=== PATIENT | female | born 1945 | race Caucasian/White ===

== ENCOUNTER 2016-05-07 10:25 | Observation (INO) | payer MEDICARE, OTHER ==
[2016-05-07 10:29] VITALS: BMI 34.3
[2016-05-07] MEDS ORDERED: Sodium Chloride 0.9% 1,000 ML IV ONE (10:44)
--- NOTE | 2016-05-07 10:48 | C.PDOC ---
History Of Present Illness 70 year old patient, with a past medical history of asthma, CAD, hypertension, CVA, CABG, diabetes, and hypercholesterolemia, presents to the emergency department complaining of shortness of breath worsening for the last 6 days. 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 Patient used her breathing treatments at home without relief. She also complains of a productive cough with white to yellow sputum. Patient has chronic lower back pain radiating to the the left leg. Patient was seen by her pain management physician, Dr. Jeter, 5 days ago who gave her a prescription for morphine. Patient had mild relief, but started to feel itchy so she stopped taking it. Patient denies fever, chest pain, palpitations, vomiting, abdominal pain, diarrhea, headache, or dizziness. Time Seen by Provider: 05/07/16 10:35 Chief Complaint (Nursing): Shortness Of Breath History Per: Patient History/Exam Limitations: no limitations Onset/Duration Of Symptoms: Worse Since (6 days) Current Symptoms Are (Timing): Still Present Initiating Event: Other Current Respiratory Medications: See Home Med List Severity: Mild Pain Scale Rating Of: 3 Recent travel outside of the [place]: No Past Medical History Reviewed: Historical Data, Nursing Documentation, Vital Signs Vital Signs: Last Vital Signs Temp 99.0 F 05/07/16 10:29 Pulse 67 05/07/16 10:29 Resp 20 05/07/16 10:50 BP 171/90 H 05/07/16 10:29 Pulse Ox 94 L 05/07/16 11:54 - Medical History PMH: Asthma, CAD, CVA, Diabetes, HTN, Hypercholesterolemia Surgical History: CABG, Coronary Stent - [facility] INJECT/INFUSE THROMBOLYTIC AGENT (11/14/12) Family History: States: CAD, Diabetes - Social History Hx Tobacco Use: No Hx Alcohol Use: No Hx Substance Use: No - Immunization History Hx Tetanus Toxoid Vaccination: Yes Hx Influenza Vaccination: Yes Hx Pneumococcal Vaccination: No Review Of Systems Except As Marked, All Systems Reviewed And Found Negative. Constitutional: Negative for: Fever Cardiovascular: Negative for: Chest Pain, Palpitations Respiratory: Positive for: Shortness of Breath Gastrointestinal: Negative for: Vomiting, Abdominal Pain, Diarrhea Neurological: Negative for: Headache, Dizziness Physical Exam - Physical Exam Appears: Non-toxic, Other (mild respiratory distress) Skin: Warm, Dry Head: Atraumatic, Normacephalic Eye(s): bilateral: Normal Inspection, EOMI Ear(s): Bilateral: Normal Nose: Normal Oral Mucosa: Moist Throat: Normal Neck: Normal ROM, Supple Chest: Symmetrical, No Tenderness Cardiovascular: Rhythm Regular Respiratory: No Accessory Muscle Use, No Rales, No Rhonchi, Wheezing (diffuse bilaterally) Gastrointestinal/Abdominal: Soft, No Tenderness Back: No CVA Tenderness, Other (paralumbar tenderness) Extremity: Normal ROM, No Pedal Edema, No Calf Tenderness, No Deformity, No Swelling, No Other (hip tenderness) Neurological/Psych: Oriented x3 ED Course And Treatment - Laboratory Results Result Diagrams: 05/07/16 11:28 05/07/16 11:28 ECG: Interpreted By Me, Viewed By Me ECG Rhythm: Sinus Rhythm ECG Interpretation: Normal, No Changes From Prior (11/01/14) Interpretation Of ECG: nonspecific Twave abnormality Rate From EC (bpm) O2 Sat by Pulse Oximetry: 94 (RA) Pulse Ox Interpretation: Abnormal Medical Decision Making Medical Decision Making: Impression: 70 y.o female in mild respiratory distress Prior records reviewed: Patient last admitted 05/17/15 for asthma exacerbation Plan: * EKG * Labs * Chest XR * Solu-Medrol, IV fluids, Duoneb Progress: Patient assessed and examined upon arrival to ED. EKG obtained and reviewed showing NS at 68 bpm with nonspecific Twave abnormality, no changes from . 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 Oxygen given via nasal cannula. Orders placed for labs and duonebs Upon reevaluation patient reports no change, she continues to have SOB and wheezing, no acute distress. Will call Tj Oliveira for obs Spoke with Tj Oliveira and accepts patient to service Disposition - Disposition Disposition: HOSPITALIZED Disposition Time: 12:43 Condition: FAIR - POA Present On Arrival: None - Clinical Impression Clinical Impression: Asthma exacerbation - PA / RISK MANAGEMENT ANALYST / Resident Statement MD/DO has reviewed & agrees with the documentation as recorded. - Scribe Statement The provider has reviewed the documentation as recorded by the Scribe Jennifer Oliveira All medical record entries made by the Scribe were at my direction and personally dictated by me. I have reviewed the chart and agree that the record accurately reflects my personal performance of the history, physical exam, medical decision making, and the department course for this patient. I have also personally directed, reviewed, and agree with the discharge instructions and disposition. Decision To Admit - Pt Status Changed To: Hospital Disposition Of: Observation - . Bed Request Type: Regular Admitting Physician: Sujatha Oliveira Patient Diagnosis: Asthma exacerbation
[2016-05-07] MEDS: Albuterol-Ipratrop 3 mg / 0.5 (3 ml) UD IH SCH ×4 (11:10→13:58)
[2016-05-07] MEDS ORDERED: Albuterol-Ipratrop 3 mg / 0.5 (3 ml) UD ONE ×3 (11:16→15:29)
[2016-05-07] MEDS ORDERED: Sodium Chloride 0.9% 1,000 ML ONE (11:27)
[2016-05-07 11:38] LABS: BASO # 0.1 K/uL (0.0-0.2); BASO % 0.7 % (0.0-2.0); EOS # 0.6 K/uL (0.0-0.7); EOS % 7.9 % (0.0-4.0); HEMATOCRIT 38.8 % (34.0-47.0); LYMPH # 1.4 K/uL (1.0-4.3); LYMPH % 20.3 % (20.0-40.0); MEAN CELL VOLUME 90.1 fL (81.0-99.0); MEAN CORPUSCULAR HEMOGLOBIN 29.6 pg (27.0-31.0); MEAN CORPUSCULAR HGB CONC 32.9 g/dL (33.0-37.0); MEAN PLATELET VOLUME 7.9 fL (7.2-11.7); MONO # 0.6 K/uL (0.0-0.8); RED CELL DISTRIBUTION WIDTH 13.6 % (11.5-14.5); WHITE BLOOD COUNT 7.1 K/uL (4.8-10.8)
[2016-05-07 11:52] LABS: CHLORIDE 100 mmol/L (98-107); POTASSIUM 4.9 mmol/L (3.6-5.2); SODIUM 140 mmol/L (132-148)
[2016-05-07 11:54] LABS: GFR AFRICAN-AMERICAN > 60
[2016-05-07 11:55] LABS: ALB/GLOB RATIO 1.4 (1.0-2.1); ALKALINE PHOSPHATASE 56 U/L (38-126); ALT/SGPT 16 U/L (9-52); AST/SGOT 25 U/L (14-36); BILIRUBIN,TOTAL 0.6 mg/dL (0.2-1.3); BLOOD UREA NITROGEN 20 mg/dL (7-17); CARBON DIOXIDE 26 mmol/L (22-30); GLUCOSE,RANDOM 155 mg/dL (65-105); TOTAL PROTEIN 6.7 g/dL (6.3-8.3)
[2016-05-07 11:56] LABS: CALCIUM 8.8 mg/dl (8.6-10.4)
[2016-05-07 13:22] LABS: RBC URINE 1 /hpf (0-3); URINE BACTERIA RARE (<OCC); URINE BILIRUBIN NEGATIVE (NEGATIVE); URINE BLOOD NEGATIVE (NEGATIVE); URINE COLOR Yellow (YELLOW); URINE GLUCOSE (UA) NORMAL (Normal); URINE KETONE NEGATIVE (NEGATIVE); URINE LEUKOCYTE ESTERASE NEG Leu/uL (Negative); URINE PROTEIN NEGATIVE (NEGATIVE); URINE UROBILINOGEN NORMAL mg/dL (0.2-1.0); WBC URINE 2 /hpf (0-5)
--- NOTE | 2016-05-07 13:58 | RAD ---
PROCEDURE: CHEST RADIOGRAPH, 1 VIEW HISTORY: SOB COMPARISON: Comparison chest 05/16/2015 FINDINGS: LUNGS: Suspect mild left basilar atelectasis or scarring PLEURA: No pneumothorax or pleural fluid seen. CARDIOVASCULAR: Sternotomy wires and CABG clips again noted. Heart appears upper limits of normal/ borderline enlarged. OSSEOUS STRUCTURES: No significant abnormalities. VISUALIZED UPPER ABDOMEN: Normal. OTHER FINDINGS: None. IMPRESSION: Suspect minor left basilar atelectasis or scarring
--- NOTE | 2016-05-07 15:18 | CP.PCM.HP ---
Past Patient History - Infectious Disease Hx of Infectious Diseases: None - Tetanus Immunizations Tetanus Immunization: Unknown - Past Medical History & Family History Past Medical History?: Yes - Past Social History Smoking Status: Light Smoker < 10 Cigarettes Daily - CARDIAC Hx Hypercholesterolemia: Yes Hx Hypertension: Yes - PULMONARY Hx Asthma: Yes - NEUROLOGICAL HX Cerebrovascular Accident: Yes (2 years ago) - HEENT Hx HEENT Problems: No - RENAL Hx Chronic Kidney Disease: No - ENDOCRINE/METABOLIC Hx Diabetes Mellitus Type 2: Yes - HEMATOLOGICAL/ONCOLOGICAL Hx Blood Disorders: No - INTEGUMENTARY Hx Dermatological Problems: No - MUSCULOSKELETAL/RHEUMATOLOGICAL Hx Musculoskeletal Disorders: No Hx Falls: Yes - GASTROINTESTINAL Hx Gastrointestinal Disorders: No - GENITOURINARY/GYNECOLOGICAL Hx Genitourinary Disorders: No - PSYCHIATRIC Hx Substance Use: No - SURGICAL HISTORY Hx Coronary Artery Bypass Graft: Yes Hx Coronary Stent: Yes - ANESTHESIA Hx Anesthesia: Yes Hx Anesthesia Reactions: No Hx Malignant Hyperthermia: No Meds Allergies/Adverse Reactions: Allergies Allergy/AdvReac Type Severity Reaction Status Date / Time tramadol Allergy Verified 05/07/16 10:28 Results - Vital Signs Recent Vital Signs: Last Vital Signs Temp 97.7 F 05/07/16 15:14 Pulse 62 05/07/16 14:15 Resp 19 05/07/16 14:15 BP 160/58 H 05/07/16 14:15 Pulse Ox 98 05/07/16 14:15 - Labs Result Diagrams: 05/07/16 11:28 05/07/16 11:28 Labs: Laboratory Results - last 24 hr 05/07/16 13:13 Urine Color Yellow Urine Clarity Clear Urine pH 6.0 Ur Specific [place] 1.011 Urine Protein Negative Urine Glucose (UA) Normal Urine Ketones Negative Urine Blood Negative Urine Nitrate Negative Urine Bilirubin Negative Urine Urobilinogen Normal Ur Leukocyte Esterase Neg Urine WBC (Auto) 2 Urine RBC (Auto) 1 Ur Squamous Epith Cells 1 Urine Bacteria Rare Assessment & Plan - Assessment and Plan (Free Text) Plan: fs ada admit to floor pulm consult singulair avelox duoneb solumedrol destinee same advair
[2016-05-07] MEDS ORDERED: Moxifloxacin IV 400mg/250ml NS 250 ML IVPB ONE (15:29)
[2016-05-07] MEDS ORDERED: MethylPREDNISolone 40 mg Vial IVP SCH (15:30)
[2016-05-07] MEDS: Moxifloxacin IV 400mg/250ml NS 250 ML IVPB SCH (15:39)
[2016-05-07] MEDS: Albuterol-Ipratrop 3 mg / 0.5 (3 ml) UD INH SCH (20:05)
[2016-05-07] MEDS: Fluticasone-Salmeterol 250-50mcg Diskus IH SCH (20:06)
[2016-05-07] MEDS: MethylPREDNISolone 40 mg Vial IVP SCH (22:07)
[2016-05-08] MEDS: Albuterol-Ipratrop 3 mg / 0.5 (3 ml) UD INH SCH ×4 (01:44→19:25)
[2016-05-08] MEDS: MethylPREDNISolone 40 mg Vial IVP SCH ×3 (05:33→21:21)
--- NOTE | 2016-05-08 07:35 | CP.PCM.PN ---
Subjective - Date & Time of Evaluation Date of Evaluation: 05/08/16 Time of Evaluation: 09:30 - Subjective Subjective: Dr. Reynold Oliveira service, Patient is seen and evaluated in room. Patient is comfortable in lieing in bed. She is saying her breathing has improved since admission. History is limited due to language barrier and patient's aphasia. Objective - Vital Signs/Intake and Output Vital Signs (last 24 hours): Temp Pulse Resp BP Pulse Ox 98.6 F 97 H 20 158/84 H 96 05/07/16 23:00 05/07/16 23:00 05/07/16 23:00 05/07/16 23:00 05/07/16 23:00 Intake and Output: 05/08/16 05/08/16 06:59 18:59 Intake Total 500 Balance 500 - Medications Medications: Current Medications Albuterol/Ipratropium (Duoneb 3 Mg/0.5 Mg (3 Ml) Ud) 3 ml INH RQ6 [facility] Last Admin: 05/08/16 01:44 Dose: 3 ml Amlodipine Besylate (Norvasc) 10 mg PO DAILY [facility] Aspirin (Ecotrin) 81 mg PO DAILY [facility] Carvedilol (Coreg) 12.5 mg PO BID [facility] Last Admin: 05/07/16 18:30 Dose: 12.5 mg Enoxaparin Sodium (Lovenox) 40 mg SC DAILY [facility] Glimepiride (Amaryl) 4 mg PO BID [facility] Last Admin: 05/07/16 19:10 Dose: 4 mg Moxifloxacin HCl (Avelox Iv 400mg/250ml Ns) 250 mls @ 167 mls/hr IVPB Q24H [facility] Stop: 05/21/16 16:01 Last Admin: 05/07/16 15:39 Dose: 167 mls/hr Isosorbide Mononitrate (Imdur) 30 mg PO DAILY [facility] Losartan Potassium (Cozaar) 100 mg PO DAILY [facility] Methylprednisolone (Solu-Medrol) 40 mg IVP Q8 [facility] Last Admin: 05/08/16 05:33 Dose: 40 mg Montelukast Sodium (Singulair) 10 mg PO HS [facility] Last Admin: 05/07/16 22:06 Dose: 10 mg Pantoprazole Sodium (Protonix Ec Tab) 40 mg PO DAILY [facility] Rosuvastatin Calcium (Crestor) 5 mg PO HS [facility] Fluticasone/Salmeterol (Advair Diskus 250/50) 1 puff IH RQ12 [facility] Last Admin: 05/07/16 20:06 Dose: Not Given Sitagliptin Phosphate (Januvia) 50 mg PO DAILY [facility] - Constitutional Appears: Non-toxic, No Acute Distress - Head Exam Head Exam: ATRAUMATIC, NORMAL INSPECTION, NORMOCEPHALIC - Eye Exam Eye Exam: Normal appearance, PERRL Pupil Exam: NORMAL ACCOMODATION - ENT Exam ENT Exam: Normal Exam - Respiratory Exam Respiratory Exam: Clear to Ausculation Bilateral, Wheezes (mild scattery wheezing). absent: Rales, Rhonchi - Cardiovascular Exam Cardiovascular Exam: REGULAR RHYTHM, RRR, +S1, +S2. absent: Gallop, Rubs - GI/Abdominal Exam GI & Abdominal Exam: Soft, Normal Bowel Sounds. absent: Distended, Guarding, Rigid, Tenderness - Extremities Exam Extremities Exam: Normal Inspection. absent: Pedal Edema - Back Exam Back Exam: NORMAL INSPECTION - Neurological Exam Neurological Exam: Alert - Psychiatric Exam Psychiatric exam: Normal Affect, Normal Mood - Skin Skin Exam: Normal Color, Warm Assessment and Plan (1) Asthma exacerbation Assessment & Plan: Patient admitted yesterday, will give duoneb 3ml [id number], Singular 10mg HS , Advair 250/50 Q12H 1 puff solumedrol 40mg q8h, Avelox 400mg IV daily Dr. Harris, consulted, help appreicated, will follow up I[facility] tomorrow morning with am labs. Status: Acute (2) CAD (coronary artery disease) Assessment & Plan: Crestor 5mg, Aspirin 81mg Status: Chronic (3) Hypertension Assessment & Plan: Norvasc 10mg, Cozaar 100mg, Imdur 30mg, Coreg 12.5mg Status: Chronic (4) Diabetes mellitus Assessment & Plan: Januvia 50mg Amaryl 4mg Accu checks ACHS, sliding scale medium protocol insulin moderate consistent carbohydrate diet. Status: Chronic (5) Prophylactic measure Assessment & Plan: Lovenox 40mg Protonix 40mg Status: Chronic
[2016-05-08] MEDS: Fluticasone-Salmeterol 250-50mcg Diskus IH SCH (09:30)
[2016-05-08] MEDS: Pantoprazole 40 mg EC Tab PO SCH (10:30)
[2016-05-08] MEDS: Enoxaparin 40 mg Syringe SC SCH (10:30)
[2016-05-08 12:13] LABS: ABG ALLEN TEST POS; ARTERIAL BLOOD HGB O2 SAT 94.9 % (95.0-98.0); DRAW SITE RR; HHB 1.6 % (0.0-5.0); METHEMOGLOBIN 1.4 % (0.0-3.0)
--- NOTE | 2016-05-08 12:28 | CP.PCM.CON ---
History of Present Illness - History of Present Illness History of Present Illness: Patient is a 70 year old female with PMH of Asthma, CAD, HTN, CVA, CABG, DM, and hypercholesteremia. Pt presented to the ER on 05/07/16 for worsening shortness of breath for 6 days. As per daughter, pt also had productive cough with white-yellow sputum at home and attempted to use breathing treatments, however without relief. Pt also admitted to chronic lower back pain radiating to her left leg which for which she was prescribed Morphine 5 days ago, by her pain management doctor, Dr. Jeter. Pt denied subjective fever, CP, nausea, vomiting, diarrhea, abdominal pain, and dizziness on initial presentation. Pulmonary team was consulted for dyspnea. Pt seen and examined at bedside. Pt has aphasia due to prior CVA, pt's daughter present at bedside. Pt appeared to be comfortable and in no acute distress. As per daughter, pt states that her shortness of breath has lessened from yesterday, stating that her nasal cannula has been helping her. She also states that her cough has also lessened, but admits to some productivity still. Pt also denies chest pain, subjective fever, nausea, vomiting, dirarrhea, and states that she no longer has lower back pain. However, pt has complaints of being constipated today. Pt denies smoking history Review of Systems - Constitutional Constitutional: Malaise (Some), Weakness (Some). absent: Fever - Cardiovascular Cardiovascular: absent: Chest Pain, Chest Pain at Rest, Dyspnea - Respiratory Respiratory: As Per HPI. absent: Dyspnea, Wheezing, Pain on Inspiration, Pain with Coughing - Musculoskeletal Musculoskeletal: absent: Back Pain (Improved) Past Patient History - Infectious Disease Hx of Infectious Diseases: None - Tetanus Immunizations Tetanus Immunization: Unknown - Past Medical History & Family History Past Medical History?: Yes - Past Social History Smoking Status: Former Smoker - CARDIAC Hx Cardiac Disorders: Yes Hx Hypercholesterolemia: Yes Hx Hypertension: Yes - PULMONARY Hx Respiratory Disorders: Yes Hx Asthma: Yes - NEUROLOGICAL Hx Neurological Disorder: Yes HX Cerebrovascular Accident: Yes (2 years ago) Hx Seizures: Yes - HEENT Hx HEENT Problems: No - RENAL Hx Chronic Kidney Disease: No - ENDOCRINE/METABOLIC Hx Endocrine Disorders: Yes Hx Diabetes Mellitus Type 2: Yes - HEMATOLOGICAL/ONCOLOGICAL Hx Blood Disorders: No - INTEGUMENTARY Hx Dermatological Problems: No - MUSCULOSKELETAL/RHEUMATOLOGICAL Hx Musculoskeletal Disorders: Yes Hx Falls: Yes - GASTROINTESTINAL Hx Gastrointestinal Disorders: No - GENITOURINARY/GYNECOLOGICAL Hx Genitourinary Disorders: Yes Hx Incontinence: Yes - PSYCHIATRIC Hx Psychophysiologic Disorder: No Hx Substance Use: No - SURGICAL HISTORY Hx Surgeries: Yes Hx Coronary Artery Bypass Graft: Yes Hx Coronary Stent: Yes Hx Hysterectomy: Yes - ANESTHESIA Hx Anesthesia: Yes Hx Anesthesia Reactions: No Hx Malignant Hyperthermia: No Meds Allergies/Adverse Reactions: Allergies Allergy/AdvReac Type Severity Reaction Status Date / Time tramadol Allergy Verified 05/07/16 10:28 - Medications Medications: Current Medications Albuterol/Ipratropium (Duoneb 3 Mg/0.5 Mg (3 Ml) Ud) 3 ml INH RQ6 [facility] Last Admin: 05/08/16 07:39 Dose: 3 ml Amlodipine Besylate (Norvasc) 10 mg PO DAILY [facility] Last Admin: 05/08/16 10:30 Dose: 10 mg Aspirin (Ecotrin) 81 mg PO DAILY [facility] Last Admin: 05/08/16 10:29 Dose: 81 mg Carvedilol (Coreg) 12.5 mg PO BID [facility] Last Admin: 05/08/16 10:29 Dose: 12.5 mg Enoxaparin Sodium (Lovenox) 40 mg SC DAILY [facility] Last Admin: 05/08/16 10:30 Dose: 40 mg Glimepiride (Amaryl) 4 mg PO BID [facility] Last Admin: 05/08/16 10:30 Dose: 4 mg Moxifloxacin HCl (Avelox Iv 400mg/250ml Ns) 250 mls @ 167 mls/hr IVPB Q24H [facility] Stop: 05/21/16 16:01 Last Admin: 05/07/16 15:39 Dose: 167 mls/hr Insulin Human Regular (Novolin R) 0 unit SC ACHS [facility] PRN Reason: Protocol Isosorbide Mononitrate (Imdur) 30 mg PO DAILY [facility] Last Admin: 05/08/16 10:29 Dose: 30 mg Losartan Potassium (Cozaar) 100 mg PO DAILY [facility] Last Admin: 05/08/16 10:30 Dose: 100 mg Methylprednisolone (Solu-Medrol) 40 mg IVP Q8 [facility] Last Admin: 05/08/16 05:33 Dose: 40 mg Montelukast Sodium (Singulair) 10 mg PO HS [facility] Last Admin: 05/07/16 22:06 Dose: 10 mg Pantoprazole Sodium (Protonix Ec Tab) 40 mg PO DAILY [facility] Last Admin: 05/08/16 10:30 Dose: 40 mg Rosuvastatin Calcium (Crestor) [address] [facility] Sitagliptin Phosphate (Januvia) 50 mg PO DAILY [facility] Last Admin: 05/08/16 10:29 Dose: 50 mg Physical Exam - Constitutional Appears: Non-toxic, No Acute Distress - Head Exam Head Exam: NORMAL INSPECTION - Eye Exam Eye Exam: Normal appearance Pupil Exam: NORMAL ACCOMODATION - ENT Exam ENT Exam: Mucous Membranes Moist - Respiratory Exam Respiratory Exam: Wheezes (Some bilateral wheezes), NORMAL BREATHING PATTERN. absent: Decreased Breath Sounds - Cardiovascular Exam Cardiovascular Exam: REGULAR RHYTHM - Neurological Exam Neurological exam: Alert, CN II-XII Intact, Oriented x3 - Psychiatric Exam Psychiatric exam: Anxious, Normal Affect - Skin Skin Exam: Dry, Intact, Normal Color, Warm Results - Vital Signs Recent Vital Signs: Last Vital Signs Temp 98 F 05/08/16 07:35 Pulse 97 H 05/08/16 07:35 Resp 18 05/08/16 07:35 BP 172/84 H 05/08/16 10:29 Pulse Ox 97 05/08/16 07:35 - Labs Result Diagrams: 05/07/16 11:28 05/07/16 11:28 Labs: Laboratory Results - last 24 hr 05/07/16 05/07/16 05/08/16 13:13 21:18 06:24 Puncture Site pCO2 pO2 HCO3 ABG pH ABG Total CO2 ABG O2 Saturation ABG Base Excess ABG Hemoglobin ABG Carboxyhemoglobin POC ABG HHb (Measured) ABG Methemoglobin Tenzin Test A-a O2 Difference Respiratory Index Hgb O2 Saturation Liter Flow FiO2 POC Glucose (mg/dL) 186 H 259 H Urine Color Yellow Urine Clarity Clear Urine pH 6.0 Ur Specific [place] 1.011 Urine Protein Negative Urine Glucose (UA) Normal Urine Ketones Negative Urine Blood Negative Urine Nitrate Negative Urine Bilirubin Negative Urine Urobilinogen Normal Ur Leukocyte Esterase Neg Urine WBC (Auto) 2 Urine RBC (Auto) 1 Ur Squamous Epith Cells 1 Urine Bacteria Rare 05/08/16 12:10 Puncture Site Rr pCO2 36 pO2 85 HCO3 22.8 ABG pH 7.39 ABG Total CO2 22.9 ABG O2 Saturation 98.3 H ABG Base Excess -2.7 L ABG Hemoglobin 12.6 ABG Carboxyhemoglobin 2.0 H POC ABG HHb (Measured) 1.6 ABG Methemoglobin 1.4 Tenzin Test Pos A-a O2 Difference 84.0 Respiratory Index 1.0 Hgb O2 Saturation 94.9 L Liter Flow 3.0 FiO2 30.0 POC Glucose (mg/dL) Urine Color Urine Clarity Urine pH Ur Specific [place] Urine Protein Urine Glucose (UA) Urine Ketones Urine Blood Urine Nitrate Urine Bilirubin Urine Urobilinogen Ur Leukocyte Esterase Urine WBC (Auto) Urine RBC (Auto) Ur Squamous Epith Cells Urine Bacteria Assessment & Plan (1) Asthma exacerbation Assessment and Plan: Chest X-ray shows minor left basilar atelectasis/scarring. See report for full details. Ordered ABG and IgE serum Continue Duoneb treatment, Solu-Medrol, Singulair, and Advair treatment. Consider sleep study in future Continue to monitor for SOB, fever, CP, and worsening cough with productivity. Status: Acute
[2016-05-08] MEDS: (Novolin R) Insulin Human Regular 100 units/ml vial SC SCH ×3 (12:55→21:17)
--- NOTE | 2016-05-08 17:22 | CP.PCM.PN ---
Subjective - Date & Time of Evaluation Date of Evaluation: 05/08/16 Time of Evaluation: 12:00 - Subjective Subjective: clinically same Objective - Vital Signs/Intake and Output Vital Signs (last 24 hours): Temp Pulse Resp BP Pulse Ox 98.9 F 88 20 146/73 96 05/08/16 15:20 05/08/16 15:20 05/08/16 15:20 05/08/16 15:20 05/08/16 15:20 Intake and Output: 05/08/16 05/08/16 06:59 18:59 Intake Total 500 400 Balance 500 400 - Medications Medications: Current Medications Albuterol/Ipratropium (Duoneb 3 Mg/0.5 Mg (3 Ml) Ud) 3 ml INH RQ6 [facility] Last Admin: 05/08/16 13:35 Dose: 3 ml Amlodipine Besylate (Norvasc) 10 mg PO DAILY [facility] Last Admin: 05/08/16 10:30 Dose: 10 mg Aspirin (Ecotrin) 81 mg PO DAILY [facility] Last Admin: 05/08/16 10:29 Dose: 81 mg Carvedilol (Coreg) 12.5 mg PO BID [facility] Last Admin: 05/08/16 10:29 Dose: 12.5 mg Enoxaparin Sodium (Lovenox) 40 mg SC DAILY [facility] Last Admin: 05/08/16 10:30 Dose: 40 mg Glimepiride (Amaryl) 4 mg PO BID [facility] Last Admin: 05/08/16 10:30 Dose: 4 mg Moxifloxacin HCl (Avelox Iv 400mg/250ml Ns) 250 mls @ 167 mls/hr IVPB Q24H [facility] Stop: 05/21/16 16:01 Last Admin: 05/07/16 15:39 Dose: 167 mls/hr Insulin Human Regular (Novolin R) 0 unit SC ACHS [facility] PRN Reason: Protocol Last Admin: 05/08/16 12:55 Dose: 3 unit Isosorbide Mononitrate (Imdur) 30 mg PO DAILY [facility] Last Admin: 05/08/16 10:29 Dose: 30 mg Losartan Potassium (Cozaar) 100 mg PO DAILY [facility] Last Admin: 05/08/16 10:30 Dose: 100 mg Methylprednisolone (Solu-Medrol) 40 mg IVP Q8 [facility] Last Admin: 05/08/16 14:29 Dose: 40 mg Montelukast Sodium (Singulair) 10 mg PO HS [facility] Last Admin: 05/07/16 22:06 Dose: 10 mg Pantoprazole Sodium (Protonix Ec Tab) 40 mg PO DAILY [facility] Last Admin: 05/08/16 10:30 Dose: 40 mg Rosuvastatin Calcium (Crestor) 5 mg PO HS [facility] Fluticasone/Salmeterol (Advair Diskus 250/50) 1 puff INH RQ12 [facility] Sitagliptin Phosphate (Januvia) 50 mg PO DAILY [facility] Last Admin: 05/08/16 10:29 Dose: 50 mg - Constitutional Appears: Well - Head Exam Head Exam: ATRAUMATIC, NORMAL INSPECTION, NORMOCEPHALIC - Eye Exam Eye Exam: EOMI, Normal appearance, PERRL Pupil Exam: NORMAL ACCOMODATION, PERRL - ENT Exam ENT Exam: Mucous Membranes Moist, Normal Exam - Neck Exam Neck Exam: Full ROM, Normal Inspection. absent: Lymphadenopathy - Respiratory Exam Respiratory Exam: Decreased Breath Sounds - Cardiovascular Exam Cardiovascular Exam: +S1 - GI/Abdominal Exam GI & Abdominal Exam: Soft, Diminished Bowel Sounds - Rectal Exam Rectal Exam: Deferred
[2016-05-08] MEDS: Moxifloxacin IV 400mg/250ml NS 250 ML IVPB SCH (18:07)
[2016-05-08] MEDS: Fluticasone-Salmeterol 250-50mcg Diskus INH SCH (19:25)
[2016-05-09] MEDS: Albuterol-Ipratrop 3 mg / 0.5 (3 ml) UD INH SCH ×3 (01:22→13:05)
[2016-05-09] MEDS: MethylPREDNISolone 40 mg Vial IVP SCH ×2 (05:26→14:28)
[2016-05-09 07:09] LABS: BASO % 0.1 % (0.0-2.0); LYMPH % 6.1 % (20.0-40.0); MEAN CELL VOLUME 91.1 fL (81.0-99.0); MEAN CORPUSCULAR HEMOGLOBIN 28.8 pg (27.0-31.0); MEAN CORPUSCULAR HGB CONC 31.6 g/dL (33.0-37.0); MEAN PLATELET VOLUME 8.2 fL (7.2-11.7); MONO # 0.7 K/uL (0.0-0.8); MONO % 4.3 % (0.0-10.0); PLATELET COUNT 182 K/uL (130-400); RED CELL DISTRIBUTION WIDTH 14.1 % (11.5-14.5)
[2016-05-09 07:35] LABS: CHLORIDE 102 mmol/L (98-107)
[2016-05-09 07:36] LABS: POTASSIUM 4.3 mmol/L (3.6-5.2); SODIUM 143 mmol/L (132-148)
[2016-05-09 07:38] LABS: ALB/GLOB RATIO 1.4 (1.0-2.1); AST/SGOT 20 U/L (14-36); BILIRUBIN,TOTAL 0.2 mg/dL (0.2-1.3); BLOOD UREA NITROGEN 25 mg/dL (7-17); CARBON DIOXIDE 25 mmol/L (22-30); GFR AFRICAN-AMERICAN > 60; TOTAL PROTEIN 6.3 g/dL (6.3-8.3)
[2016-05-09 07:39] LABS: ALKALINE PHOSPHATASE 61 U/L (38-126); ALT/SGPT 15 U/L (9-52); CALCIUM 9.2 mg/dl (8.6-10.4); GLUCOSE,RANDOM 208 mg/dL (65-105); MAGNESIUM 1.9 mg/dL (1.6-2.3); PHOSPHOROUS 2.7 mg/dL (2.5-4.5)
[2016-05-09] MEDS: Fluticasone-Salmeterol 250-50mcg Diskus INH SCH (08:10)
[2016-05-09] MEDS: (Novolin R) Insulin Human Regular 100 units/ml vial SC SCH ×2 (08:30→12:05)
[2016-05-09 08:52] VITALS: PULSE 64; RESP 18; TEMP 98.3; O2SAT 98
[2016-05-09 10:06] LABS: NEUTROPHIL 88 % (50-75); TOTAL CELLS COUNTED 100
[2016-05-09] MEDS: Pantoprazole 40 mg EC Tab PO SCH (10:37)
[2016-05-09] MEDS: Enoxaparin 40 mg Syringe SC SCH (10:38)
--- NOTE | 2016-05-09 11:12 | CP.PCM.PN ---
Subjective - Date & Time of Evaluation Date of Evaluation: 05/09/16 Time of Evaluation: 09:50 - Subjective Subjective: Pt seen and examined at bedside. Pt sitting up in bed, appears comfortable, and in a pleasant mood. Pt states that she is doing better today and denies any complains or concerns today. Pt denies SOB, CP, subjective fever, cough, and congestion. Objective - Vital Signs/Intake and Output Vital Signs (last 24 hours): Temp Pulse Resp BP Pulse Ox 98.3 F 64 18 136/68 98 05/09/16 08:00 05/09/16 08:00 05/09/16 08:00 05/09/16 10:36 05/09/16 08:00 Intake and Output: 05/09/16 05/09/16 06:59 18:59 Intake Total 240 Balance 240 - Medications Medications: Current Medications Albuterol/Ipratropium (Duoneb 3 Mg/0.5 Mg (3 Ml) Ud) 3 ml INH RQ6 [facility] Last Admin: 05/09/16 08:10 Dose: 3 ml Amlodipine Besylate (Norvasc) 10 mg PO DAILY [facility] Last Admin: 05/09/16 10:37 Dose: 10 mg Aspirin (Ecotrin) 81 mg PO DAILY [facility] Last Admin: 05/09/16 10:38 Dose: 81 mg Carvedilol (Coreg) 12.5 mg PO BID [facility] Last Admin: 05/09/16 10:36 Dose: 12.5 mg Enoxaparin Sodium (Lovenox) 40 mg SC DAILY [facility] Last Admin: 05/09/16 10:38 Dose: 40 mg Glimepiride (Amaryl) 4 mg PO BID [facility] Last Admin: 05/09/16 10:37 Dose: 4 mg Moxifloxacin HCl (Avelox Iv 400mg/250ml Ns) 250 mls @ 167 mls/hr IVPB Q24H [facility] Stop: 05/21/16 16:01 Last Admin: 05/08/16 18:07 Dose: 167 mls/hr Insulin Human Regular (Novolin R) 0 unit SC ACHS [facility] PRN Reason: Protocol Last Admin: 05/09/16 08:30 Dose: 2 unit Isosorbide Mononitrate (Imdur) 30 mg PO DAILY [facility] Last Admin: 05/09/16 10:37 Dose: 30 mg Losartan Potassium (Cozaar) 100 mg PO DAILY [facility] Last Admin: 05/09/16 10:37 Dose: 100 mg Methylprednisolone (Solu-Medrol) 40 mg IVP Q8 [facility] Last Admin: 05/09/16 05:26 Dose: 40 mg Montelukast Sodium (Singulair) 10 mg PO HS [facility] Last Admin: 05/08/16 21:19 Dose: 10 mg Pantoprazole Sodium (Protonix Ec Tab) 40 mg PO DAILY [facility] Last Admin: 05/09/16 10:37 Dose: 40 mg Rosuvastatin Calcium (Crestor) 5 mg PO HS [facility] Last Admin: 05/08/16 21:19 Dose: 5 mg Fluticasone/Salmeterol (Advair Diskus 250/50) 1 puff INH RQ12 [facility] Last Admin: 05/09/16 08:10 Dose: 1 puff Sitagliptin Phosphate (Januvia) 50 mg PO DAILY [facility] Last Admin: 05/09/16 10:37 Dose: 50 mg - Labs Labs: 05/09/16 07:02 05/09/16 07:02 - Constitutional Appears: No Acute Distress - Head Exam Head Exam: NORMAL INSPECTION - Eye Exam Eye Exam: Normal appearance - ENT Exam ENT Exam: Mucous Membranes Moist, Normal Exam - Neck Exam Neck Exam: Normal Inspection - Respiratory Exam Respiratory Exam: Clear to Ausculation Bilateral, NORMAL BREATHING PATTERN. absent: Rales, Rhonchi, Wheezes - Cardiovascular Exam Cardiovascular Exam: REGULAR RHYTHM, +S1, +S2. absent: +S4 - Neurological Exam Neurological Exam: Alert, Awake, Oriented x3 - Psychiatric Exam Psychiatric exam: Normal Affect, Normal Mood - Skin Skin Exam: Dry, Intact, Normal Color, Warm Assessment and Plan (1) Asthma exacerbation Assessment & Plan: ABG results indicated stable condition Continue to monitor for SOB, fever, CP, and worsening cough with productivity. Consider outpatient sleep study to rule out sleep apnea Continue duonebs, Singular, Advair, solumedrol, Avelox, Follow up IGE results Status: Acute
--- NOTE | 2016-05-09 11:15 | CP.PCM.PN ---
Addendum entered and electronically signed by Martha Michael DO 05/09/16 12: 34: D/C home with prednisone 20mg PO daily x 5 days, pepcid 20mg PO daily x 7 days, ronda. Original Note: <Martha Michael - Last Filed: 05/09/16 11:12> Subjective - Date & Time of Evaluation Date of Evaluation: 05/09/16 Time of Evaluation: 07:55 - Subjective Subjective: Dr. Reynold Oliveira service, Patient is seen and evaluated in room. Patient is comfortable in laying in bed. She is saying her breathing has improved since admission. Patient denies fever, chills, chest pain, cough, abdominal pain, nausea, vomiting, diarrhea, constipation, dysuria. Objective - Vital Signs/Intake and Output Vital Signs (last 24 hours): Temp Pulse Resp BP Pulse Ox 98.3 F 64 18 136/68 98 05/09/16 08:00 05/09/16 08:00 05/09/16 08:00 05/09/16 10:36 05/09/16 08:00 Intake and Output: 05/09/16 05/09/16 06:59 18:59 Intake Total 240 Balance 240 - Medications Medications: Current Medications Albuterol/Ipratropium (Duoneb 3 Mg/0.5 Mg (3 Ml) Ud) 3 ml INH RQ6 [facility] Last Admin: 05/09/16 08:10 Dose: 3 ml Amlodipine Besylate (Norvasc) 10 mg PO DAILY [facility] Last Admin: 05/09/16 10:37 Dose: 10 mg Aspirin (Ecotrin) 81 mg PO DAILY [facility] Last Admin: 05/09/16 10:38 Dose: 81 mg Carvedilol (Coreg) 12.5 mg PO BID [facility] Last Admin: 05/09/16 10:36 Dose: 12.5 mg Enoxaparin Sodium (Lovenox) 40 mg SC DAILY [facility] Last Admin: 05/09/16 10:38 Dose: 40 mg Glimepiride (Amaryl) 4 mg PO BID [facility] Last Admin: 05/09/16 10:37 Dose: 4 mg Moxifloxacin HCl (Avelox Iv 400mg/250ml Ns) 250 mls @ 167 mls/hr IVPB Q24H [facility] Stop: 05/21/16 16:01 Last Admin: 05/08/16 18:07 Dose: 167 mls/hr Insulin Human Regular (Novolin R) 0 unit SC ACHS [facility] PRN Reason: Protocol Last Admin: 05/09/16 08:30 Dose: 2 unit Isosorbide Mononitrate (Imdur) 30 mg PO DAILY [facility] Last Admin: 05/09/16 10:37 Dose: 30 mg Losartan Potassium (Cozaar) 100 mg PO DAILY [facility] Last Admin: 05/09/16 10:37 Dose: 100 mg Methylprednisolone (Solu-Medrol) 40 mg IVP Q8 [facility] Last Admin: 05/09/16 05:26 Dose: 40 mg Montelukast Sodium (Singulair) 10 mg PO HS [facility] Last Admin: 05/08/16 21:19 Dose: 10 mg Pantoprazole Sodium (Protonix Ec Tab) 40 mg PO DAILY [facility] Last Admin: 05/09/16 10:37 Dose: 40 mg Rosuvastatin Calcium (Crestor) 5 mg PO HS [facility] Last Admin: 05/08/16 21:19 Dose: 5 mg Fluticasone/Salmeterol (Advair Diskus 250/50) 1 puff INH RQ12 [facility] Last Admin: 05/09/16 08:10 Dose: 1 puff Sitagliptin Phosphate (Januvia) 50 mg PO DAILY [facility] Last Admin: 05/09/16 10:37 Dose: 50 mg - Labs Labs: 05/09/16 07:02 05/09/16 07:02 - Constitutional Appears: Non-toxic, No Acute Distress - Head Exam Head Exam: NORMAL INSPECTION - Eye Exam Eye Exam: EOMI - ENT Exam ENT Exam: Mucous Membranes Moist - Respiratory Exam Respiratory Exam: Clear to Ausculation Bilateral, NORMAL BREATHING PATTERN. absent: Rales, Rhonchi, Wheezes - Cardiovascular Exam Cardiovascular Exam: REGULAR RHYTHM, +S1, +S2. absent: Gallop, Rubs, Murmur - GI/Abdominal Exam GI & Abdominal Exam: Soft, Normal Bowel Sounds. absent: Firm, Guarding, Tenderness - Extremities Exam Extremities Exam: absent: Pedal Edema - Neurological Exam Neurological Exam: Alert, Awake, Oriented x3 - Psychiatric Exam Psychiatric exam: Normal Affect, Normal Mood - Skin Skin Exam: Normal Color, Warm Assessment and Plan - Assessment and Plan (Free Text) Assessment: (1) Asthma exacerbation Assessment & Plan: duonebs q6h Singular 10mg HS Advair 250/50 Q12H 1 puff solumedrol 40mg q8h Avelox 400mg IV daily Dr. Harris, consulted, help appreciated will follow up IGE Status: Acute (2) CAD (coronary artery disease) Assessment & Plan: Crestor 5mg, Aspirin 81mg Status: Chronic (3) Hypertension Assessment & Plan: Norvasc 10mg, Cozaar 100mg, Imdur 30mg, Coreg 12.5mg Status: Chronic (4) Diabetes mellitus Assessment & Plan: Januvia 50mg Amaryl 4mg Accu checks ACHS, sliding scale medium protocol insulin moderate consistent carbohydrate diet. Status: Chronic (5) Prophylactic measure Assessment & Plan: Lovenox 40mg SC daily Protonix 40mg PO daily <Sujatha Oliveira S - Last Filed: 05/09/16 20:07> Objective - Vital Signs/Intake and Output Vital Signs (last 24 hours): Temp Pulse Resp BP Pulse Ox 98.3 F 64 18 158/71 H 98 05/09/16 08:00 05/09/16 08:00 05/09/16 08:00 05/09/16 14:30 05/09/16 14:30 Intake and Output: 05/09/16 05/10/16 18:59 06:59 Intake Total 450 Balance 450 - Labs Labs: 05/09/16 07:02 05/09/16 07:02 Attending/Attestation - Attestation I have personally seen and examined this patient.: Yes I have fully participated in the care of the patient.: Yes I have reviewed all pertinent clinical information, including history, physical exam and plan: Yes Notes (Text): 05/09/16 20:07 case seen and discussed with staff and resident mx as agreed
[2016-05-09 15:05] VITALS: BP 158/71
--- NOTE | 2016-05-10 08:04 | CARD ---
APPROVED REPORT EKG Measurement Heart [id number] <Conclusion> Normal sinus rhythm Nonspecific T wave abnormality Abnormal ECG
== END 2016-05-09 15:25 | disposition home or self-care (01) ==
LOC: C.ER 10:25 → C.9E 12:42 → C.6T 18:52 → C.3T 05-08 22:24
PROVIDERS: ADMIT Internal Medicine Nephrology; ATTEND Internal Medicine Nephrology
DX: J45.901 Unspecified asthma with (acute) exacerbation (principal); K59.00 Constipation, unspecified; I10 Essential (primary) hypertension; E78.00 Pure hypercholesterolemia, unspecified; E11.9 Type 2 diabetes mellitus without complications; Z87.891 Personal history of nicotine dependence; Z95.1 Presence of aortocoronary bypass graft; I25.10 Atherosclerotic heart disease of native coronary artery without angina pectoris; Z79.4 Long term (current) use of insulin
CPT/HCPCS: 36415; 71010; 80053; 81001; 82803; 82948; 83735; 83880; 84100; 85025; 87804; 93005; 94150; 94640; 94760; 96365; 96374; 97116; 97162; 99285; G0378; G8978; G8979; J1650; J2280; J2920; J2930; J7040

== ENCOUNTER 2016-07-30 21:01 | Emergency (ER) | payer MEDICARE, OTHER ==
[2016-07-30 21:02] VITALS: BMI 34.3
[2016-07-30 21:14] VITALS: BP 153/82; PULSE 69; RESP 16; TEMP 98.6; O2SAT 96
--- NOTE | 2016-07-30 21:38 | C.PDOC ---
History Of Present Illness 71 y/o female with multiple medical problems, including chronic lower back pain from herniated disks, comes to ED with her daughter for worsening of lower back paiin over unclear period of time. 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 daughter sts pt unable to take ibuprofen due to interaction with some of her heart medications; full list of medications not available at this time. unclear which pain medication pt is taking at home, if any, recently. pt denies any numbness, tingling, weakness in lower extremities., no recent trauma, no bladder or bowel dysfunction , no fever or chills., no saddle anesthesia. Time Seen by Provider: 07/30/16 21:34 Chief Complaint (Nursing): Back Pain History Per: Patient, Family History/Exam Limitations: no limitations Onset/Duration Of Symptoms: Days Current Symptoms Are (Timing): Worse Quality Of Discomfort: "Pain" Severity: Moderate Previous Symptoms: Back Pain, Chronic Pain Associated Symptoms: denies: Incontinence, New Weakness, New Numbness Exacerbating Factor(s): Movement Recent travel outside of the [place]: No Past Medical History Reviewed: Historical Data, Nursing Documentation, Vital Signs Vital Signs: Last Vital Signs Temp 98.6 F 07/30/16 21:06 Pulse 69 07/30/16 21:06 Resp 16 07/30/16 21:06 BP 153/82 H 07/30/16 21:06 Pulse Ox 96 07/30/16 22:36 - Medical History PMH: Arthritis (L KNEE), Asthma, CAD, CVA, Diabetes, HTN, Hypercholesterolemia, Seizures (due to the stroke) Denies: Chronic Kidney Disease Surgical History: CABG (5 years ago), Coronary Stent - [facility] Procedures INJECT/INFUSE THROMBOLYTIC AGENT (11/14/12) Family History: States: CAD, Diabetes - Social History Hx Tobacco Use: No Hx Alcohol Use: No Hx Substance Use: No - Immunization History Hx Tetanus Toxoid Vaccination: Yes Hx Influenza Vaccination: Yes Hx Pneumococcal Vaccination: Yes Review Of Systems Constitutional: Negative for: Fever, Chills Cardiovascular: Negative for: Chest Pain, Palpitations Respiratory: Negative for: Cough, Shortness of Breath Gastrointestinal: Negative for: Vomiting, Abdominal Pain Genitourinary: Negative for: Dysuria Musculoskeletal: Positive for: Back Pain Skin: Negative for: Rash Neurological: Negative for: Weakness, Numbness Physical Exam - Physical Exam Appears: Non-toxic, Other (uncomfortable, appears older than stated age. ) Skin: Normal Color, Warm, Dry Head: Atraumatic, Normacephalic Gastrointestinal/Abdominal: Soft, No Tenderness Back: No CVA Tenderness, Vertebral Tenderness, Paraspinal Tenderness, No Straight Leg Raising, Other (diffuse bilateral lumbar area left and right tenderness and midline tenderness. ) Extremity: Normal ROM, No Tenderness, No Pedal Edema, Capillary Refill (less than 2 seconds) Pulses: Left Dorsalis Pedis: Normal, Right Dorsalis Pedis: Normal Neurological/Psych: Oriented x3, Normal Speech, Normal Cognition, Normal Motor, Normal Sensation (no saddle anesthesia) Gait: Steady (painful) ED Course And Treatment O2 Sat by Pulse Oximetry: 96 Medical Decision Making Medical Decision Makin70 y/o female with multiple med problems and worsening of chronic lower back pain, not taking percocet (prescribed by pain management) because they make her itch , per daughter; allerigic to tramadol per chart; unable to take nsaids due to interactions with her other medications; pt with no new symptoms, denies numbness and tingling and weakness, no bladder or bowel dysfunction. no medication given in ED; pt advised to see her pmd and pain management physician tomorrow for further evaluation. Explained to daughter I could be doing more harm than good to give medication without full knowledge of what makes her itch, and what all her other medications are that nsaids could interact with . Disposition Counseled Patient/Family Regarding: Diagnosis, Need For Followup - Disposition Referrals: Griffin Hay MD [Medical Doctor] - Disposition: HOME/ ROUTINE Disposition Time: 22:21 Condition: STABLE Additional Instructions: Follow up with your pain management doctor as soon as possible. re-consider injection into back, and discuss which medicine makes oyu itchy and discuss what your alternatives are. Follow up with pmd. Return to ER for numbness or tingling to lower extremties, unable to awalk, unable to control bladder or bowel or any other concerning symptoms. Instructions: Chronic Back Pain (ED) Forms: Gen Discharge Inst Frisian Print Language: [id number] - Clinical Impression Clinical Impression: Low back pain
== END 2016-07-30 22:28 | disposition home or self-care (01) ==
LOC: C.ER 21:01
DX: M54.5 Low back pain (principal)

== ENCOUNTER 2017-10-08 09:44 | Inpatient (IN) | payer MEDICARE, OTHER ==
[2017-10-08 10:04] VITALS: BMI 35.5
[2017-10-08] MEDS ORDERED: Aspirin 325 mg EC Tablets PO STA (10:25)
[2017-10-08 10:26] LABS: BASO % 0.7 % (0.0-2.0); EOS # 0.4 K/uL (0.0-0.7); EOS % 5.7 % (0.0-4.0); HEMOGLOBIN 14.1 g/dL (11.0-16.0); LYMPH % 28.3 % (20.0-40.0); MEAN CELL VOLUME 88.8 fL (81.0-99.0); MEAN CORPUSCULAR HEMOGLOBIN 29.8 pg (27.0-31.0); MEAN CORPUSCULAR HGB CONC 33.6 g/dL (33.0-37.0); MEAN PLATELET VOLUME 7.8 fL (7.2-11.7); MONO # 0.8 K/uL (0.0-0.8); MONO % 11.2 % (0.0-10.0); NEUT # 3.8 K/uL (1.8-7.0); NEUT % 54.1 % (50.0-75.0); RBC 4.75 Mil/uL (3.80-5.20); RED CELL DISTRIBUTION WIDTH 13.8 % (11.5-14.5)
[2017-10-08] MEDS ORDERED: Aspirin 325 mg EC Tablets PO ONE (10:35)
[2017-10-08 10:36] LABS: PROTHROMBIN TIME 10.5 SECONDS (9.7-12.2)
--- NOTE | 2017-10-08 10:54 | C.PDOC ---
History Of Present Illness 72 year old female presents to the emergency department with complaints of chest pain since 2 days ago, associated with SOB and "pressure," which prompted her to come to ER. Otherwise patient denies any nausea or vomiting. Time Seen by Provider: 10/08/17 10:18 Chief Complaint (Nursing): Chest Pain History Per: Patient History/Exam Limitations: no limitations Onset/Duration Of Symptoms: Days Current Symptoms Are (Timing): Still Present Past Medical History Reviewed: Historical Data, Nursing Documentation, Vital Signs Vital Signs: Last Vital Signs Temp 98.3 F 10/08/17 10:04 Pulse 60 10/08/17 10:04 Resp 18 10/08/17 10:04 BP 151/73 H 10/08/17 10:04 Pulse Ox 98 10/08/17 13:05 - Medical History PMH: Arthritis (L KNEE), Asthma, CAD, CVA, Diabetes, HTN, Hypercholesterolemia, Seizures (due to the stroke) Denies: Chronic Kidney Disease Surgical History: CABG (5 years ago), Coronary Stent - [facility] Procedures INJECT/INFUSE THROMBOLYTIC AGENT (11/14/12) Family History: States: No Known Family Hx, CAD, Diabetes - Social History Hx Tobacco Use: No Hx Alcohol Use: No Hx Substance Use: No - Immunization History Hx Tetanus Toxoid Vaccination: Yes Hx Influenza Vaccination: Yes Hx Pneumococcal Vaccination: Yes Review Of Systems Except As Marked, All Systems Reviewed And Found Negative. Cardiovascular: Positive for: Chest Pain Respiratory: Positive for: Shortness of Breath Physical Exam - Physical Exam Appears: Non-toxic, No Acute Distress Skin: Normal Color, Warm, Dry Head: Atraumatic, Normacephalic Eye(s): bilateral: Normal Inspection, PERRL, EOMI Nose: Normal Oral Mucosa: Moist Neck: Supple Chest: Symmetrical Cardiovascular: Rhythm Regular, No Murmur Respiratory: Normal Breath Sounds, No Rales, No Rhonchi, No Wheezing Gastrointestinal/Abdominal: Normal Exam, Soft, No Tenderness Extremity: Bilateral: Atraumatic, Normal Color And Temperature, Normal ROM Neurological/Psych: Oriented x3, Normal Speech ED Course And Treatment - Laboratory Results Result Diagrams: 10/08/17 10:20 10/08/17 11:12 ECG: Interpreted By Me ECG Rhythm: Sinus Bradycardia Interpretation Of ECG: Normal intervals, normal axis, poor R wave progression; T wave inversion in I, aVL, v4, v5, and v6. Rate From EC O2 Sat by Pulse Oximetry: 98 (RA) Pulse Ox Interpretation: Normal - Other Rad Chest X-Ray X-Ray: Read By Radiologist Interpretation: Findings: Mild venous congestion. Tortuous ectatic aorta. Status post median sternotomy and CABG. Mild patchy increased markings at the left lung base. Cardiomegaly. Degenerative changes in the spine and shoulders. Impression: Mild venous congestion. Tortuous ectatic aorta. Status post median sternotomy and CABG. Mild patchy increased markings at the left lung base. Cardiomegaly. Degenerative changes in the spine and shoulders. Medical Decision Making Medical Decision Making: Impression: Chest pain Plan: -EKG -Labs -Chest X-Ray -Ecotrin -Nebulizer 12:30pm - Spoke with Dr. Dixon who agreed to admit patient and tell observation for chest pain ruleout. Disposition Discussed With : Sierra Dixon Doctor Will See Patient In The: Hospital Counseled Patient/Family Regarding: Studies Performed, Diagnosis - Disposition Disposition: HOSPITALIZED Disposition Time: 12:29 Condition: FAIR - Clinical Impression Clinical Impression: Chest pain - Scribe Statement The provider has reviewed the documentation as recorded by the Nasreen Michaud Provider Attestation: All medical record entries made by the Nasreen were at my direction and personally dictated by me. I have reviewed the chart and agree that the record accurately reflects my personal performance of the history, physical exam, medical decision making, and the department course for this patient. I have also personally directed, reviewed, and agree with the discharge instructions and disposition.
[2017-10-08] MEDS ORDERED: Albuterol 0.083% Inhal Sol (2.5 mg/3 mL) UD INH STA (11:04)
[2017-10-08] MEDS ORDERED: Albuterol 0.083% Inhal Sol (2.5 mg/3 mL) UD ONE (11:05)
[2017-10-08 11:42] LABS: ALB/GLOB RATIO 1.7 (1.0-2.1); ALBUMIN 4.1 g/dL (3.5-5.0); ALT/SGPT 25 U/L (9-52); AST/SGOT 15 U/L (14-36); B-TYPE NATRIURETIC PEPTIDE 111 pg/mL (0-900); BLOOD UREA NITROGEN 17 mg/dL (7-17); CALCIUM 9.1 mg/dl (8.6-10.4); GFR NON-AFRICAN AMERICAN > 60
--- NOTE | 2017-10-08 12:56 | RAD ---
Chest x-ray single frontal view History: Shortness of breath. Comparison: 05/07/2016 Findings: Mild venous congestion. Tortuous ectatic aorta. Status post median sternotomy and CABG. Mild patchy increased markings at the left lung base. Cardiomegaly. Degenerative changes in the spine and shoulders. Impression: Mild venous congestion. Tortuous ectatic aorta. Status post median sternotomy and CABG. Mild patchy increased markings at the left lung base. Cardiomegaly. Degenerative changes in the spine and shoulders.
[2017-10-08 14:08] LABS: CK-MB 0.85 ng/mL (0.0-3.38)
--- NOTE | 2017-10-08 14:16 | CP.PCM.HP ---
History of Present Illness - History of Present Illness History of Present Illness: COMPREHENSIVE HISTORY & PHYSICAL EXAM Patient admitted from [facility] emergency room for chest pain retrosternal HPI For the last 2 days patient been complaining of retrosternal chest pain with increasing severity and frequency. Presented to [facility]. First set of cardiac enzyme is negative. EKG showed some T wave changes in the anterolateral leads. Patient is now admitted for further evaluation PAST HIST. History of coronary artery disease history of stent, CABG 5 years ago. 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 PERSONAL HIST: Smoking. Former Alcohol. N Allergy N Travel _- . FAMILY HIST : ROS : Constitutional: Negative for weight change, chills, night sweats, fatigue and usage of assist device. Eyes: Negative for redness, swelling, itching, discharge, vision changes, blurry vision, double vision, glaucoma, cataracts, Ears: Negative for hearing loss, ringing, , tinnitus, vertigo Nose: Negative for rhinorrhea, stuffiness, sniffing, itching, postnasal drip, discoloration, nasal congestion and epistaxis. Throat: Negative for throat clearing, sore throat, hoarseness, difficulty swallowing and difficulty speaking. Respiratory: Negative for cough, , sputum production, chest tightness, wheezing, pleuritic chest pain ,daytime somnolence, chronic cough, hemoptysis, snoring at night, Cardiovascular: Negative for edema of legs. Neurology: Negative for irritability, muscle weakness, numbness and tingling, seizures, tremors, migraines, slurred speech, syncope, memory loss, mood changes , recurrent headaches Gastrointestinal: Negative for difficulty swallowing, diarrhea, constipation, black stools, rectal bleeding, nausea, flatulence, reflux, poor appetite, changes in bowel habits, abdominal pain Genitourinary: Negative for frequent urination, hematuria, discharge, incontinence, urinary retention, frequent UTI, Psychiatric: Negative for depression, anxiety/panic, suicidal tendencies, Musculoskeletal: Negative for swollen joints, back pain, , neck pain, morning stiffness of joints, . Skin: Negative for rash, ulcers, itching, dry skin and pigmented lesions. P/E: Constitutional: Appears stated age and in no apparent distress. Head: Normocephalic. Ears: External ear canals patent without inflammation. Tympanic membranes intact with normal light reflex and landmark. Eyes: Pupils are central, bilaterally equal, symmetrical and reacts to light with normal movements and no icterus or pallor. Nose: External nares are patent. Mucosa is pink Mouth-Throat: Good general appearance and condition. No post-pharyngeal/oropharyngeal erythema and tonsillar hypertrophy. Good dental hygiene. Neck-Lymphatic: Neck is supple with normal ROM, no thyromegaly, lymph nodes or masses. JVD is normal with no carotid bruit. Lungs: Clear to percussion and auscultation with bilateral normal air entry. Cardiovascular: S1 and S2 are normal with no murmurs, gallops and rub. GI Exam: No hepatomegaly. Abdomen is soft and non-tender. No Organomegaly , masses or hernias are evident and bowel sounds are normal and active. Neurology: Higher function and all cranial nerves intact, with no gross motor or sensory deficit. Superficial and deep reflexes are normal with downwards planters. No cerebellar deficit with normal gait. Musculoskeletal: No tender spots with normal curvature of the spine with no swelling or restricted ROM of the small and large joints. Extremities: Homans sign absent. Intact pulses with no pitting edema, calf tenderness or skin color changes. Skin: No rash, eruptions or abnormal skin pigmentation LAB/RADIOLOGY: ASSESMENT : Acute coronary syndrome in the setting of coronary artery disease with stent and CABG. Type 2 diabetes hypertension COPD with asthma History of seizures CVA and depression PLAN: See orders Present on Admission - Present on Admission Any Indicators Present on Admission: No Past Patient History - Infectious Disease Hx of Infectious Diseases: None - Tetanus Immunizations Tetanus Immunization: Unknown - Past Medical History & Family History Past Medical History?: Yes - Past Social History Smoking Status: Former Smoker - CARDIAC Hx Hypercholesterolemia: Yes Hx Hypertension: Yes - PULMONARY Hx Asthma: Yes - NEUROLOGICAL Hx Seizures: Yes (due to the stroke) - HEENT Hx HEENT Problems: No - RENAL Hx Chronic Kidney Disease: No - ENDOCRINE/METABOLIC Hx Diabetes Mellitus Type 2: Yes - HEMATOLOGICAL/ONCOLOGICAL Hx Blood Disorders: No - INTEGUMENTARY Hx Dermatological Problems: No - MUSCULOSKELETAL/RHEUMATOLOGICAL Hx Arthritis: Yes (L KNEE) - GASTROINTESTINAL Hx Gastrointestinal Disorders: No - GENITOURINARY/GYNECOLOGICAL Hx Genitourinary Disorders: Yes - PSYCHIATRIC Hx Substance Use: No - SURGICAL HISTORY Hx Coronary Artery Bypass Graft: Yes (5 years ago) Hx Coronary Stent: Yes - ANESTHESIA Hx Anesthesia: Yes Hx Anesthesia Reactions: No Hx Malignant Hyperthermia: No Meds Allergies/Adverse Reactions: Allergies Allergy/AdvReac Type Severity Reaction Status Date / Time tramadol Allergy Verified 10/08/17 10:01 Results - Vital Signs Recent Vital Signs: Last Vital Signs Temp 98.3 F 10/08/17 10:04 Pulse 60 10/08/17 10:04 Resp 18 10/08/17 10:04 BP 151/73 H 10/08/17 10:04 Pulse Ox 98 10/08/17 13:11 - Labs Result Diagrams: 10/08/17 10:20 10/08/17 11:12 Labs: Laboratory Results - last 24 hr 10/08/17 10/08/17 10/08/17 10:20 10:20 11:12 WBC 7.0 D RBC 4.75 Hgb 14.1 Hct 42.2 MCV 88.8 D MCH 29.8 MCHC 33.6 RDW 13.8 Plt Count 191 MPV 7.8 Neut % (Auto) 54.1 Lymph % (Auto) 28.3 Josephine % (Auto) 11.2 H Eos % (Auto) 5.7 H Baso % (Auto) 0.7 Neut # (Auto) 3.8 Lymph # (Auto) 2.0 Josephine # (Auto) 0.8 Eos # (Auto) 0.4 Baso # (Auto) 0.0 PT 10.5 INR 1.0 APTT 27 Sodium 140 Potassium 4.6 Chloride 105 Carbon Dioxide 25 Anion Gap 15 BUN 17 Creatinine 0.7 Est GFR ( Amer) > 60 Est GFR (Non-Af Amer) > 60 Random Glucose 108 H Calcium 9.1 Total Bilirubin 0.4 AST 15 ALT 25 Alkaline Phosphatase 92 Total Creatine Kinase CK-MB (Mass) Troponin I < 0.0120 NT-Pro-B Natriuret Pep 111 Total Protein 6.5 Albumin 4.1 Globulin 2.4 Albumin/Globulin Ratio 1.7 10/08/17 13:31 WBC RBC Hgb Hct MCV MCH MCHC RDW Plt Count MPV Neut % (Auto) Lymph % (Auto) Josephine % (Auto) Eos % (Auto) Baso % (Auto) Neut # (Auto) Lymph # (Auto) Josephine # (Auto) Eos # (Auto) Baso # (Auto) PT INR APTT Sodium Potassium Chloride Carbon Dioxide Anion Gap BUN Creatinine Est GFR ( Amer) Est GFR (Non-Af Amer) Random Glucose Calcium Total Bilirubin AST ALT Alkaline Phosphatase Total Creatine Kinase 53 CK-MB (Mass) 0.85 Troponin I < 0.0120 NT-Pro-B Natriuret Pep Total Protein Albumin Globulin Albumin/Globulin Ratio
[2017-10-08 20:46] LABS: SQUAMOUS EPITHIAL 2 /hpf (0-5); URINE BACTERIA RARE (<OCC); URINE BILIRUBIN NEGATIVE (NEGATIVE); URINE BLOOD NEGATIVE (NEGATIVE); URINE CLARITY Hazy (Clear); URINE COLOR Yellow (YELLOW); URINE GLUCOSE (UA) NORMAL (Normal); URINE LEUKOCYTE ESTERASE 2+ Leu/uL (Negative); URINE PROTEIN NEGATIVE (NEGATIVE); URINE UROBILINOGEN NORMAL mg/dL (0.2-1.0)
[2017-10-08 21:51] LABS: CK-MB 0.73 ng/mL (0.0-3.38)
[2017-10-08] MEDS: (Novolin R) Insulin Human Regular 100 units/ml vial SC SCH (22:39)
[2017-10-09] MEDS: (Novolin R) Insulin Human Regular 100 units/ml vial SC SCH ×4 (08:13→22:09)
[2017-10-09] MEDS ORDERED: BIOTIN 5 MG PO SCH (10:00)
[2017-10-09] MEDS ORDERED: VORTIOXETINE HYDROBROMIDE 5 MG PO SCH (10:00)
[2017-10-09] MEDS ORDERED: BRIVARACETAM 50 MG PO SCH (10:00)
[2017-10-09] MEDS: NIFEdipine 90 mg ER Tab PO SCH (10:39)
[2017-10-09] MEDS: Pantoprazole 40 mg EC Tab PO SCH (10:39)
[2017-10-09] MEDS: TRINTELLIX 20 MG PO SCH (13:18)
--- NOTE | 2017-10-09 13:18 | CP.PCM.PN ---
Subjective - Date & Time of Evaluation Date of Evaluation: 10/09/17 Time of Evaluation: 13:17 - Subjective Subjective: CHIEF COMPLAINTS TODAY : patient has no further chest pain. ROS. HEENT : N. Resp : No cough, wheezing ,pleuritic CP ,or hemoptysis Cardio : No anginal CP, PND, orthopnea, palpitation GI : No abd.pain, n/v ,diarrhea or GI bleeding . DOCTOR OF PHARMACY : No headache, vertigo, focal deficit. Musculoskel : No joint swelling , Derm : No rash Psych : Normal affect. Ext : No swelling ,calf pain PE. Pt. is alert awake in no distress. V.S As noted in the chart Head ,ear nose,throat and eyes : Normal. Neck : Supple with normal carotids. Lungs: Clear air entry. Heart : S1 & S2 normal with S4. No murmur. Abd : Soft non tender with normal bowel sounds. Neuro : Moves all ext. with no localized deficit. Ext : No edema with intact pulses.Non tender calves Derm : No rashes or decubitus ulcer. LABS/RADIOLOGY: urine shows gram-negative rods ASSESSMENT/PLAN : ID evaluation for UTI. Awaiting cardiac workup. Objective - Vital Signs/Intake and Output Vital Signs (last 24 hours): Temp Pulse Resp BP Pulse Ox 97.5 F L 60 20 160/82 H 98 10/09/17 07:00 10/09/17 12:00 10/09/17 10:37 10/09/17 10:37 10/09/17 10:37 Intake and Output: 10/09/17 10/09/17 11:59 23:59 Intake Total 120 Balance 120 - Medications Medications: Current Medications Amlodipine Besylate (Norvasc) 10 mg PO DAILY [facility] Last Admin: 10/09/17 10:39 Dose: 10 mg Ascorbic Acid (Vitamin C 500 Mg Tab) 500 mg PO DAILY [facility] Last Admin: 10/09/17 10:39 Dose: 500 mg Aspirin (Ecotrin) 81 mg PO DAILY [facility] Last Admin: 10/09/17 10:39 Dose: 81 mg Carvedilol (Coreg) 12.5 mg PO BID [facility] Last Admin: 10/09/17 10:39 Dose: Not Given Cyanocobalamin (Vitamin B12 1000 Mcg Tab) 1,000 mcg PO DAILY [facility] Last Admin: 10/09/17 10:39 Dose: 1,000 mcg Glimepiride (Amaryl) 4 mg PO BID [facility] Last Admin: 10/09/17 10:39 Dose: 4 mg Heparin Sodium (Porcine) (Heparin) 5,000 units SC Q8 [facility] Last Admin: 10/09/17 06:41 Dose: 5,000 units Home Med (Patient's Own Control Medication) 1 tab PO BID [facility] Home Med (Patient's Own Medication) 1 tab PO DAILY [facility] Hydralazine HCl (Apresoline) 25 mg PO DAILY [facility] Last Admin: 10/09/17 10:39 Dose: 25 mg Ceftriaxone Sodium 1 gm/ (Sodium Chloride) 100 mls @ 100 mls/hr IVPB Q24H [facility] PRN Reason: Protocol Insulin Human Regular (Novolin R) 0 unit SC ACHS [facility] PRN Reason: Protocol Last Admin: 10/09/17 11:37 Dose: Not Given Isosorbide Mononitrate (Imdur Er) 30 mg PO DAILY [facility] Last Admin: 10/09/17 10:39 Dose: 30 mg Losartan Potassium (Cozaar) 100 mg PO DAILY [facility] Last Admin: 10/09/17 10:39 Dose: 100 mg Montelukast Sodium (Singulair) 10 mg PO HS [facility] Nifedipine (Procardia Xl) 90 mg PO DAILY [facility] Last Admin: 10/09/17 10:39 Dose: 90 mg Irnpk-[id number] Ethyl Esters (Lovaza) 1 gm PO BID [facility] Pantoprazole Sodium (Protonix Ec Tab) 40 mg PO DAILY [facility] Last Admin: 10/09/17 10:39 Dose: 40 mg Sitagliptin Phosphate (Januvia) 50 mg PO DAILY [facility] Last Admin: 10/09/17 10:39 Dose: 50 mg Vitamin E (Vitamin E 400 Units Cap) 400 intlu PO DAILY [facility] Last Admin: 10/09/17 11:00 Dose: 400 intlu - Labs Labs: 10/08/17 10:20 10/08/17 11:12 PT 10.5 SECONDS (9.7-12.2) 10/08/17 10:20 INR 1.0 10/08/17 10:20 APTT 27 SECONDS (21-34) 10/08/17 10:20
--- NOTE | 2017-10-09 16:39 | CARD ---
APPROVED REPORT Date of service: 10/09/2017 EXAM: Two-dimensional and M-mode echocardiogram with Doppler and color Doppler. Other Information Quality : GoodRhythm : INDICATION Dyspnea Chest Pain RISK FACTORS Hypertension Diabetes 2D DIMENSIONS IVSd0.9 (0.7-1.1cm)LVDd4.8 (3.9-5.9cm) PWd1.0 (0.7-1.1cm)LVDs2.6 (2.5-4.0cm) FS (%) 46.3 %LVEF (%)77.6 (>50%) M-Mode DIMENSIONS Left Atrium (MM)4.75 (2.5-4.0cm)IVSd1.07 (0.7-1.1cm) Aortic Root3.24 (2.2-3.7cm)LVDd5.27 (4.0-5.6cm) Aortic Cusp Exc.2.05 (1.5-2.0cm)PWd1.05 (0.7-1.1cm) FS (%) 42 %LVDs3.07 (2.0-3.8cm) LVEF (%)72 (>50%) Mitral Valve MV E Ylerqwvf87.3cm/sMV A Flheoepe29.2cm/sE/A ratio0.9 TDI E/Lateral E'0.0E/Medial E'0.0 LEFT VENTRICLE The left ventricle is normal size. There is normal left ventricular wall thickness. The left ventricular function is normal. The left ventricular ejection fraction is within the normal range. about 75$ No regional wall motion abnormalities noted. The left ventricular diastolic function is normal. No left ventricle thrombus noted on this study. There is no ventricular septal defect visualized. There is no left ventricular aneurysm. There is no mass noted in the left ventricle. RIGHT VENTRICLE The right ventricle is normal size. There is normal right ventricular wall thickness. The right ventricular systolic function is normal. ATRIA The left atrium size is normal. The right atrium size is normal. The interatrial septum is intact with no evidence for an atrial septal defect. AORTIC VALVE The aortic valve is normal in structure and function. No aortic regurgitation is present. There is no aortic valvular stenosis. There is no aortic valvular vegetation. MITRAL VALVE The mitral valve is normal in structure and function. There is no evidence of mitral valve prolapse. There is no mitral valve stenosis. There is trace mitral valve regurgitation noted. TRICUSPID VALVE The tricuspid valve is normal in structure and function. There is no tricuspid valve regurgitation noted. There is no tricuspid valve prolapse or vegetation. There is no tricuspid valve stenosis. PULMONIC VALVE The pulmonary valve is normal in structure and function. There is no pulmonic valvular regurgitation. There is no pulmonic valvular stenosis. GREAT VESSELS The aortic root is normal in size. The ascending aorta is normal in size. The pulmonary artery is normal. The IVC is normal in size and collapses >50% with inspiration. PERICARDIAL EFFUSION The pericardium appears normal. There is no pleural effusion. <Conclusion> Normal LV systolic function and wall motion. Normal Doppler.
[2017-10-09] MEDS: Omega-3-Acid Ethyl Esters 1 GM Cap PO SCH (17:20)
[2017-10-09] MEDS: BRIVIACT 50 MG PO (17:21)
--- NOTE | 2017-10-09 17:34 | CP.PCM.CON ---
History of Present Illness - History of Present Illness History of Present Illness: INFECTIOUS DISEASE CONSULTATION; HPI; 72-year-old female with history off CAD, diabetes mellitus, HTN, hypercholesterolemia, history of old CVA, asthma, arthritis and sees due to stroke who is admitted by the emergency room complaining of chest pain since past 2 days. Patient also states she has been having shortness of breath and pressure chest which prompted her to come to the ER. Patient presently undergoing cardiac workup. Infectious disease consultation requested by PMD as urine cultures came back positive for gram-negative rods. Patient complains of pain right flank for the past few days and also complains of back pain. Patient denies any nausea vomiting. Denies any hematuria or any history of kidney stones. Patient presently started on IV Rocephin 1 g once a day. PMH: Arthritis (L KNEE), Asthma, CAD, CVA, Diabetes, HTN, Hypercholesterolemia , Seizures (due to the stroke) Denies: Chronic Kidney Disease Surgical History: CABG (5 years ago), Coronary Stent - [facility] Procedures INJECT/INFUSE THROMBOLYTIC AGENT (11/14/12) Family History: States: No Known Family Hx, CAD, Diabetes - Social History Hx Tobacco Use: No Hx Alcohol Use: No Hx Substance Use: No - Immunization History Hx Tetanus Toxoid Vaccination: Yes Hx Influenza Vaccination: Yes Hx Pneumococcal Vaccination: Yes ALLERGY; TRAMADOL. Review of Systems - Constitutional Constitutional: absent: Chills, Fever - EENT Nose/Mouth/Throat: absent: Dry Mouth, Mouth Lesions - Cardiovascular Cardiovascular: Chest Pain, Dyspnea - Respiratory Respiratory: absent: Cough, Hemoptysis - Gastrointestinal Gastrointestinal: absent: Abdominal Pain, Vomiting - Genitourinary Genitourinary: Flank Pain, Urinary Frequency, Voiding Freq/Small Amts. absent: Hematuria - Reproductive: Female Reproductive:Female: Post Menopausal - Musculoskeletal Musculoskeletal: Back Pain - Neurological Neurological: absent: Dizziness, Headaches - Hematologic/Lymphatic Hematologic: As Per HPI. absent: Easy Bleeding, Easy Bruising, Lymphadenopathy Past Patient History - Infectious Disease Hx of Infectious Diseases: None - Tetanus Immunizations Tetanus Immunization: Unknown - Past Medical History & Family History Past Medical History?: Yes - Past Social History Smoking Status: Former Smoker - CARDIAC Hx Hypercholesterolemia: Yes Hx Hypertension: Yes - PULMONARY Hx Asthma: Yes - NEUROLOGICAL Hx Seizures: Yes (due to the stroke) - HEENT Hx HEENT Problems: No - RENAL Hx Chronic Kidney Disease: No - ENDOCRINE/METABOLIC Hx Diabetes Mellitus Type 2: Yes - HEMATOLOGICAL/ONCOLOGICAL Hx Blood Disorders: No - INTEGUMENTARY Hx Dermatological Problems: No - MUSCULOSKELETAL/RHEUMATOLOGICAL Hx Arthritis: Yes (L KNEE) - GASTROINTESTINAL Hx Gastrointestinal Disorders: No - GENITOURINARY/GYNECOLOGICAL Hx Genitourinary Disorders: Yes - PSYCHIATRIC Hx Substance Use: No - SURGICAL HISTORY Hx Coronary Artery Bypass Graft: Yes (5 years ago) Hx Coronary Stent: Yes - ANESTHESIA Hx Anesthesia: Yes Hx Anesthesia Reactions: No Hx Malignant Hyperthermia: No Meds Allergies/Adverse Reactions: Allergies Allergy/AdvReac Type Severity Reaction Status Date / Time tramadol Allergy Verified 10/08/17 10:01 - Medications Medications: Current Medications Acetaminophen (Tylenol 325mg Tab) 650 mg PO Q6 PRN PRN Reason: Pain, moderate (4-7) Last Admin: 10/09/17 14:13 Dose: 650 mg Amlodipine Besylate (Norvasc) 10 mg PO DAILY [facility] Last Admin: 10/09/17 10:39 Dose: 10 mg Ascorbic Acid (Vitamin C 500 Mg Tab) 500 mg PO DAILY [facility] Last Admin: 10/09/17 10:39 Dose: 500 mg Aspirin (Ecotrin) 81 mg PO DAILY [facility] Last Admin: 10/09/17 10:39 Dose: 81 mg Carvedilol (Coreg) 12.5 mg PO BID [facility] Last Admin: 10/09/17 17:20 Dose: 12.5 mg Cyanocobalamin (Vitamin B12 1000 Mcg Tab) 1,000 mcg PO DAILY [facility] Last Admin: 10/09/17 10:39 Dose: 1,000 mcg Glimepiride (Amaryl) 4 mg PO BID [facility] Last Admin: 10/09/17 17:20 Dose: 4 mg Heparin Sodium (Porcine) (Heparin) 5,000 units SC Q8 [facility] Last Admin: 10/09/17 16:14 Dose: 5,000 units Home Med (Patient's Own Control Medication) 1 tab PO BID [facility] Last Admin: 10/09/17 17:21 Dose: 1 tab Home Med (Patient's Own Medication) 1 tab PO DAILY [facility] Last Admin: 10/09/17 13:18 Dose: 1 tab Hydralazine HCl (Apresoline) 25 mg PO DAILY [facility] Last Admin: 10/09/17 10:39 Dose: 25 mg Ceftriaxone Sodium 1 gm/ (Sodium Chloride) 100 mls @ 100 mls/hr IVPB Q24H [facility] PRN Reason: Protocol Last Admin: 10/09/17 13:19 Dose: 100 mls/hr Insulin Human Regular (Novolin R) 0 unit SC ACHS [facility] PRN Reason: Protocol Last Admin: 10/09/17 16:29 Dose: Not Given Isosorbide Mononitrate (Imdur Er) 30 mg PO DAILY [facility] Last Admin: 10/09/17 10:39 Dose: 30 mg Losartan Potassium (Cozaar) 100 mg PO DAILY [facility] Last Admin: 10/09/17 10:39 Dose: 100 mg Montelukast Sodium (Singulair) 10 mg PO [facility] Nifedipine (Procardia Xl) 90 mg PO DAILY [facility] Last Admin: 10/09/17 10:39 Dose: 90 mg Sfvyz-[id number]-Ukju Ethyl Esters (Lovaza) 1 gm PO BID [facility] Last Admin: 10/09/17 17:20 Dose: 1 gm Pantoprazole Sodium (Protonix Ec Tab) 40 mg PO DAILY [facility] Last Admin: 10/09/17 10:39 Dose: 40 mg Sitagliptin Phosphate (Januvia) 50 mg PO DAILY [facility] Last Admin: 10/09/17 10:39 Dose: 50 mg Vitamin E (Vitamin E 400 Units Cap) 400 intlu PO DAILY [facility] Last Admin: 10/09/17 11:00 Dose: 400 intlu Physical Exam - Constitutional Appears: No Acute Distress - Head Exam Head Exam: NORMAL INSPECTION - Eye Exam Eye Exam: EOMI, PERRL - ENT Exam ENT Exam: Normal Oropharynx - Neck Exam Neck exam: Positive for: Normal Inspection - Respiratory Exam Respiratory Exam: Clear to Auscultation Bilateral - Cardiovascular Exam Cardiovascular Exam: REGULAR RHYTHM, +S1, +S2 - GI/Abdominal Exam GI & Abdominal Exam: Normal Bowel Sounds, Soft, Tenderness (RT CVA ) - Extremities Exam Extremities exam: Positive for: pedal pulses present. Negative for: calf tenderness, pedal edema Results - Vital Signs Recent Vital Signs: Last Vital Signs Temp 97.6 F 10/09/17 15:00 Pulse 66 10/09/17 16:00 Resp 20 10/09/17 15:00 BP 115/62 10/09/17 17:20 Pulse Ox 100 10/09/17 16:00 - Labs Result Diagrams: 10/08/17 10:20 10/08/17 11:12 Labs: Laboratory Results - last 24 hr 10/08/17 10/08/17 10/08/17 17:35 20:10 20:53 POC Glucose (mg/dL) 80 125 H Total Creatine Kinase CK-MB (Mass) Troponin I Urine Color Yellow Urine Clarity Hazy Urine pH 6.0 Ur Specific Amo 1.015 Urine Protein Negative Urine Glucose (UA) Normal Urine Ketones Negative Urine Blood Negative Urine Nitrate Positive H Urine Bilirubin Negative Urine Urobilinogen Normal Ur Leukocyte Esterase 2+ H Urine WBC (Auto) 60 H Urine RBC (Auto) 1 Ur Squamous Epith Cells 2 Urine Bacteria Rare 10/08/17 10/09/17 10/09/17 21:20 06:32 11:20 POC Glucose (mg/dL) 112 H 150 H Total Creatine Kinase 51 CK-MB (Mass) 0.73 Troponin I < 0.0120 Urine Color Urine Clarity Urine pH Ur Specific Amo Urine Protein Urine Glucose (UA) Urine Ketones Urine Blood Urine Nitrate Urine Bilirubin Urine Urobilinogen Ur Leukocyte Esterase Urine WBC (Auto) Urine RBC (Auto) Ur Squamous Epith Cells Urine Bacteria 10/09/17 16:25 POC Glucose (mg/dL) 110 Total Creatine Kinase CK-MB (Mass) Troponin I Urine Color Urine Clarity Urine pH Ur Specific Amo Urine Protein Urine Glucose (UA) Urine Ketones Urine Blood Urine Nitrate Urine Bilirubin Urine Urobilinogen Ur Leukocyte Esterase Urine WBC (Auto) Urine RBC (Auto) Ur Squamous Epith Cells Urine Bacteria - Imaging and Cardiology Chest x-ray Status: Report reviewed by me (MILD VENOUS CONGESTION,S/P MEDIAN STERNOTOMY/CABG , MILD PATCHY INCREASED MARKINGS LEFT BASE. cARDIOMEGALY. dEGENERATIVE CHANGES SPINE AND SHOULDERS.) Assessment & Plan (1) Chest pain Assessment and Plan: TROPONINS FIRST SET NEGATIVE. cARDIAC WORKUP IN PROGRESS. pRObnp 111. Status: Acute (2) Acute urinary tract infection Assessment and Plan: URINE CULTURE POSITIVE FOR GRAM-NEGATIVE RODS. pANCULTURES RENAL ULTRASOUND R/O STONES VERSUS HYDRONEPHROSIS. 1 DOSE GENTAMICIN 140 MG STAT iv PIGGYBACK. 10/09/17. INCREASE iv ROCEPHIN 2 G ONCE A DAY DAILY STARTING 10/10/17. fOLLOW-UP CULTURES TO ADJUST ANTIBIOTICS. Status: Acute (3) Anxiety Status: Acute (4) CAD (coronary artery disease) Assessment and Plan: HISTORY OF CABG/STENT PLACEMENT Status: Chronic (5) Diabetes mellitus Status: Chronic (6) Hypertension Status: Chronic
--- NOTE | 2017-10-09 17:37 | CARD ---
APPROVED REPORT Date of service: 10/08/2017 EKG Measurement Heart [id number] <Conclusion> Sinus bradycardia Septal infarct, age undetermined Cannot rule out Inferior infarct, age undetermined ST & T wave abnormality, consider lateral ischemia Prolonged QT Abnormal ECG
--- NOTE | 2017-10-10 00:15 | CARD ---
APPROVED REPORT Date of service: 10/09/2017 EKG Measurement Heart [id number] <Conclusion> Sinus bradycardia Left axis deviation Inferior infarct, age undetermined T wave abnormality, consider anterolateral ischemia Abnormal ECG
[2017-10-10] MEDS: (Novolin R) Insulin Human Regular 100 units/ml vial SC SCH ×4 (08:00→21:54)
[2017-10-10 08:28] LABS: BASO % 0.5 % (0.0-2.0); EOS # 0.3 K/uL (0.0-0.7); HEMOGLOBIN 14.2 g/dL (11.0-16.0); LYMPH # 1.3 K/uL (1.0-4.3); LYMPH % 17.8 % (20.0-40.0); MEAN CELL VOLUME 88.7 fL (81.0-99.0); MEAN CORPUSCULAR HEMOGLOBIN 29.7 pg (27.0-31.0); MEAN CORPUSCULAR HGB CONC 33.5 g/dL (33.0-37.0); MEAN PLATELET VOLUME 8.2 fL (7.2-11.7); MONO # 0.6 K/uL (0.0-0.8); MONO % 8.5 % (0.0-10.0); NEUT % 69.2 % (50.0-75.0); RBC 4.77 Mil/uL (3.80-5.20); RED CELL DISTRIBUTION WIDTH 13.9 % (11.5-14.5); WHITE BLOOD COUNT 7.2 K/uL (4.8-10.8)
[2017-10-10 08:46] LABS: ALB/GLOB RATIO 1.5 (1.0-2.1); ALBUMIN 4.1 g/dL (3.5-5.0); ALT/SGPT 20 U/L (9-52); AST/SGOT 15 U/L (14-36); BILIRUBIN,DIRECT 0.7 mg/dL (0.0-0.4); BLOOD UREA NITROGEN 17 mg/dL (7-17); CALCIUM 8.7 mg/dl (8.6-10.4); GFR NON-AFRICAN AMERICAN > 60
[2017-10-10] MEDS: Pantoprazole 40 mg EC Tab PO SCH (09:16)
[2017-10-10] MEDS: Omega-3-Acid Ethyl Esters 1 GM Cap PO SCH ×2 (09:17→17:41)
[2017-10-10] MEDS: TRINTELLIX 20 MG PO SCH (09:18)
[2017-10-10] MEDS: NIFEdipine 90 mg ER Tab PO SCH (09:18)
[2017-10-10] MEDS: BRIVIACT 50 MG PO ×2 (10:44→17:42)
[2017-10-10] MEDS: cefTRIAXone 2 GM in Sodium Chloride 0.9% 100 ML IVPB SCH (13:01)
[2017-10-10] MEDS ORDERED: cefTRIAXone 2 GM IN NS 2 GM/100 ML BAG IVPB SCH (14:00)
--- NOTE | 2017-10-10 14:06 | CP.PCM.PN ---
<Sierra Dixon N - Last Filed: 10/10/17 14:05> Subjective - Date & Time of Evaluation Date of Evaluation: 10/10/17 Time of Evaluation: 14:05 - Subjective Subjective: CHIEF COMPLAINTS TODAY : patient has no further chest pain. currently patient's pain is in the right renal angle and the right side of the lower chest ROS. HEENT : N. Resp : No cough, wheezing ,pleuritic CP ,or hemoptysis Cardio : No anginal CP, PND, orthopnea, palpitation GI : No abd.pain, n/v ,diarrhea or GI bleeding . 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 Musculoskel : No joint swelling , Derm : No rash Psych : Normal affect. Ext : No swelling ,calf pain PE. Pt. is alert awake in no distress. V.S As noted in the chart Head ,ear nose,throat and eyes : Normal. Neck : Supple with normal carotids. Lungs: Clear air entry. Heart : S1 & S2 normal with S4. No murmur. Abd : Soft non tender with normal bowel sounds. Neuro : Moves all ext. with no localized deficit. Ext : No edema with intact pulses.Non tender calves Derm : No rashes or decubitus ulcer. LABS/RADIOLOGY: urine shows gram-negative rods ASSESSMENT/PLAN : ultrasound of the kidney done report pending IV antibiotics as per ID Objective - Vital Signs/Intake and Output Vital Signs (last 24 hours): Temp Pulse Resp BP Pulse Ox 98.4 F 73 18 127/71 95 10/10/17 07:00 10/10/17 07:45 10/10/17 07:00 10/10/17 09:17 10/10/17 07:00 Intake and Output: 10/10/17 10/10/17 11:59 23:59 Intake Total 120 Balance 120 - Medications Medications: Current Medications Acetaminophen (Tylenol 325mg Tab) 650 mg PO Q6 PRN PRN Reason: Pain, moderate (4-7) Last Admin: 10/09/17 14:13 Dose: 650 mg Amlodipine Besylate (Norvasc) 10 mg PO DAILY [facility] Last Admin: 10/10/17 09:17 Dose: 10 mg Ascorbic Acid (Vitamin C 500 Mg Tab) 500 mg PO DAILY [facility] Last Admin: 10/10/17 09:17 Dose: 500 mg Aspirin (Ecotrin) 81 mg PO DAILY [facility] Last Admin: 10/10/17 09:17 Dose: 81 mg Carvedilol (Coreg) 12.5 mg PO BID [facility] Last Admin: 10/10/17 09:17 Dose: 12.5 mg Cyanocobalamin (Vitamin B12 1000 Mcg Tab) 1,000 mcg PO DAILY [facility] Last Admin: 10/10/17 09:18 Dose: 1,000 mcg Glimepiride (Amaryl) 4 mg PO BID [facility] Last Admin: 10/10/17 09:17 Dose: 4 mg Heparin Sodium (Porcine) (Heparin) 5,000 units SC Q8 [facility] Last Admin: 10/10/17 13:01 Dose: 5,000 units Home Med (Patient's Own Control Medication) 1 tab PO BID [facility] Last Admin: 10/10/17 10:44 Dose: 1 tab Home Med (Patient's Own Medication) 1 tab PO DAILY [facility] Last Admin: 10/10/17 09:18 Dose: 1 tab Hydralazine HCl (Apresoline) 25 mg PO DAILY [facility] Last Admin: 10/10/17 09:16 Dose: 25 mg Ceftriaxone Sodium 2 gm/ (Sodium Chloride) 100 mls @ 200 mls/hr IVPB Q24H [facility] Last Admin: 10/10/17 13:01 Dose: 200 mls/hr Insulin Human Regular (Novolin R) 0 unit SC ACHS [facility] PRN Reason: Protocol Last Admin: 10/10/17 12:15 Dose: Not Given Isosorbide Mononitrate (Imdur Er) 30 mg PO DAILY [facility] Last Admin: 10/10/17 09:17 Dose: 30 mg Losartan Potassium (Cozaar) 100 mg PO DAILY [facility] Last Admin: 10/10/17 09:17 Dose: 100 mg Montelukast Sodium (Singulair) 10 mg PO HS [facility] Last Admin: 10/09/17 22:02 Dose: 10 mg Nifedipine (Procardia Xl) 90 mg PO DAILY [facility] Last Admin: 10/10/17 09:18 Dose: 90 mg Jcosn-5-Rofg Ethyl Esters (Lovaza) 1 gm PO BID [facility] Last Admin: 10/10/17 09:17 Dose: 1 gm Pantoprazole Sodium (Protonix Ec Tab) 40 mg PO DAILY [facility] Last Admin: 10/10/17 09:16 Dose: 40 mg Sitagliptin Phosphate (Januvia) 50 mg PO DAILY [facility] Last Admin: 10/10/17 09:17 Dose: 50 mg Vitamin E (Vitamin E 400 Units Cap) 400 intlu PO DAILY [facility] Last Admin: 10/10/17 09:18 Dose: 400 intlu - Labs Labs: 10/10/17 08:19 10/10/17 08:19 PT 10.5 SECONDS (9.7-12.2) 10/08/17 10:20 INR 1.0 10/08/17 10:20 APTT 27 SECONDS (21-34) 10/08/17 10:20 <Cindy Galvin - Last Filed: 10/11/17 02:18> Objective - Vital Signs/Intake and Output Vital Signs (last 24 hours): Temp Pulse Resp BP Pulse Ox 99.5 F 74 20 127/63 95 10/10/17 23:15 10/10/17 23:15 10/10/17 23:15 10/10/17 23:15 10/10/17 23:15 Intake and Output: 10/10/17 10/11/17 18:59 06:59 Intake Total 100 480 Balance 100 480 - Medications Medications: Current Medications Acetaminophen (Tylenol 325mg Tab) 650 mg PO Q6 PRN PRN Reason: Pain, moderate (4-7) Last Admin: 10/09/17 14:13 Dose: 650 mg Amlodipine Besylate (Norvasc) 10 mg PO DAILY [facility] Last Admin: 10/10/17 09:17 Dose: 10 mg Ascorbic Acid (Vitamin C 500 Mg Tab) 500 mg PO DAILY [facility] Last Admin: 10/10/17 09:17 Dose: 500 mg Aspirin (Ecotrin) 81 mg PO DAILY [facility] Last Admin: 10/10/17 09:17 Dose: 81 mg Carvedilol (Coreg) 12.5 mg PO BID [facility] Last Admin: 10/10/17 17:45 Dose: Not Given Cyanocobalamin (Vitamin B12 1000 Mcg Tab) 1,000 mcg PO DAILY [facility] Last Admin: 10/10/17 09:18 Dose: 1,000 mcg Glimepiride (Amaryl) 4 mg PO BID [facility] Last Admin: 10/10/17 17:41 Dose: 4 mg Heparin Sodium (Porcine) (Heparin) 5,000 units SC Q8 [facility] Last Admin: 10/10/17 22:03 Dose: 5,000 units Home Med (Patient's Own Control Medication) 1 tab PO BID [facility] Last Admin: 10/10/17 17:42 Dose: 1 tab Home Med (Patient's Own Medication) 1 tab PO DAILY [facility] Last Admin: 10/10/17 09:18 Dose: 1 tab Hydralazine HCl (Apresoline) 25 mg PO DAILY [facility] Last Admin: 10/10/17 09:16 Dose: 25 mg Ceftriaxone Sodium 2 gm/ (Sodium Chloride) 100 mls @ 200 mls/hr IVPB Q24H [facility] Last Admin: 10/10/17 13:01 Dose: 200 mls/hr Insulin Human Regular (Novolin R) 0 unit SC ACHS [facility] PRN Reason: Protocol Last Admin: 10/10/17 21:54 Dose: Not Given Isosorbide Mononitrate (Imdur Er) 30 mg PO DAILY [facility] Last Admin: 10/10/17 09:17 Dose: 30 mg Losartan Potassium (Cozaar) 100 mg PO DAILY [facility] Last Admin: 10/10/17 09:17 Dose: 100 mg Montelukast Sodium (Singulair) 10 mg PO HS [facility] Last Admin: 10/10/17 22:03 Dose: 10 mg Nifedipine (Procardia Xl) 90 mg PO DAILY [facility] Last Admin: 10/10/17 09:18 Dose: 90 mg Oyeon-1-Wxco Ethyl Esters (Lovaza) 1 gm PO BID [facility] Last Admin: 10/10/17 17:41 Dose: 1 gm Pantoprazole Sodium (Protonix Ec Tab) 40 mg PO DAILY [facility] Last Admin: 10/10/17 09:16 Dose: 40 mg Polyethylene Glycol (Miralax) 17 gm PO HS PRN PRN Reason: Constipation Last Admin: 10/10/17 22:03 Dose: 17 gm Sitagliptin Phosphate (Januvia) 50 mg PO DAILY [facility] Last Admin: 10/10/17 09:17 Dose: 50 mg Vitamin E (Vitamin E 400 Units Cap) 400 intlu PO DAILY [facility] Last Admin: 10/10/17 09:18 Dose: 400 intlu - Labs Labs: 10/10/17 08:19 10/10/17 08:19 PT 10.5 SECONDS (9.7-12.2) 10/08/17 10:20 INR 1.0 10/08/17 10:20 APTT 27 SECONDS (21-34) 10/08/17 10:20 Assessment and Plan (1) Chest pain Status: Acute (2) Acute urinary tract infection Status: Acute (3) Anxiety Status: Acute (4) CAD (coronary artery disease) Status: Chronic (5) Diabetes mellitus Status: Chronic (6) Hypertension Status: Chronic
--- NOTE | 2017-10-10 14:27 | US ---
Date of service: 10/09/17 Ultrasound-abdomen complete Indication: UTI R/O NEPHROLITHIASIS/HYDRO Comparison: None available Findings: Echogenic liver may be seen in setting of hepatic parenchymal disease or fatty infiltration. The liver measures approximately 16.6 cm. The main portal vein appears patent with normal directional flow. There is no evidence of intrahepatic ductal dilatation. The common bile duct appears within normal limits of caliber, measuring approximately 3 mm. The gallbladder appears unremarkable. There is no evidence of gallbladder-wall thickening, pericholecystic fluid, or stones. The patient was not focally tender over the gallbladder. The pancreas was not visualized. The right kidney measures 9.8 x 4.2 x 4.8 cm and is without evidence of stones or hydronephrosis. 1.1 cm upper pole and 1.5 cm lower pole renal cyst. The left kidney measures 10.1 x 4.4 x 4.5 cm and is without evidence of stones or hydronephrosis. 2.8 cm midpole, 0.6 cm and 1.0 cm lower pole, and 1.7 cm complex upper pole renal cysts. Trace fluid is noted adjacent to the left lower pole kidney. The spleen measures approximately 7.7 cm. The visualized abdominal aorta appears within normal limits caliber. The visualized IVC appear grossly unremarkable. Impression: Echogenic liver may be seen in setting of hepatic parenchymal disease or fatty infiltration. Bilateral renal cysts. Complex appearing probable cyst with in the left upper pole measures approximately 1.7 cm. Suggest cross-sectional imaging for further evaluation. Trace fluid adjacent to the left lower pole kidney. Echogenic liver may be seen in setting of hepatic parenchymal disease or fatty infiltration.
[2017-10-10] MEDS: POLYETHYLENE GLYCOL 3350 17 GM/Dose PACKET PO PRN (22:03)
--- NOTE | 2017-10-10 23:25 | CP.PCM.PN ---
Subjective - Date & Time of Evaluation Date of Evaluation: 10/10/17 Time of Evaluation: 23:25 - Subjective Subjective: CHIEF COMPLAINTS TODAY : AFEBRILE c/o rt flank pain.denies chest pain. Also complains of dysuria . ROS. HEENT : N. Resp : No cough, wheezing ,pleuritic CP ,or hemoptysis Cardio : No anginal CP, PND, orthopnea, palpitation GI : No abd.pain, n/v ,diarrhea or GI bleeding . 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 Musculoskel : No joint swelling , Derm : No rash Psych : Normal affect. Ext : No swelling ,calf pain PE. Pt. is alert awake in no distress. V.S As noted in the chart Head ,ear nose,throat and eyes : Normal. Neck : Supple with normal carotids. Lungs: Clear air entry.MIDLINE SCAR OF CABG Heart : S1 & S2 normal with S4. No murmur. Abd : Soft +VE TENDERNESS RIGHT FLANK AND RIGHT CVA. Neuro : Moves all ext. with no localized deficit. Ext : No edema with intact pulses.Non tender calves Derm : No rashes or decubitus ulcer. LABS/RADIOLOGY: urine shows gram-negative rods S-PENDING Objective - Vital Signs/Intake and Output Vital Signs (last 24 hours): Temp Pulse Resp BP Pulse Ox 97.9 F 67 20 101/63 95 10/10/17 15:58 10/10/17 15:58 10/10/17 15:58 10/10/17 15:58 10/10/17 15:58 Intake and Output: 10/10/17 10/11/17 18:59 06:59 Intake Total 100 480 Balance 100 480 - Medications Medications: Current Medications Acetaminophen (Tylenol 325mg Tab) 650 mg PO Q6 PRN PRN Reason: Pain, moderate (4-7) Last Admin: 10/09/17 14:13 Dose: 650 mg Amlodipine Besylate (Norvasc) 10 mg PO DAILY [facility] Last Admin: 10/10/17 09:17 Dose: 10 mg Ascorbic Acid (Vitamin C 500 Mg Tab) 500 mg PO DAILY [facility] Last Admin: 10/10/17 09:17 Dose: 500 mg Aspirin (Ecotrin) 81 mg PO DAILY [facility] Last Admin: 10/10/17 09:17 Dose: 81 mg Carvedilol (Coreg) 12.5 mg PO BID [facility] Last Admin: 10/10/17 17:45 Dose: Not Given Cyanocobalamin (Vitamin B12 1000 Mcg Tab) 1,000 mcg PO DAILY [facility] Last Admin: 10/10/17 09:18 Dose: 1,000 mcg Glimepiride (Amaryl) 4 mg PO BID [facility] Last Admin: 10/10/17 17:41 Dose: 4 mg Heparin Sodium (Porcine) (Heparin) 5,000 units SC Q8 [facility] Last Admin: 10/10/17 22:03 Dose: 5,000 units Home Med (Patient's Own Control Medication) 1 tab PO BID [facility] Last Admin: 10/10/17 17:42 Dose: 1 tab Home Med (Patient's Own Medication) 1 tab PO DAILY [facility] Last Admin: 10/10/17 09:18 Dose: 1 tab Hydralazine HCl (Apresoline) 25 mg PO DAILY [facility] Last Admin: 10/10/17 09:16 Dose: 25 mg Ceftriaxone Sodium 2 gm/ (Sodium Chloride) 100 mls @ 200 mls/hr IVPB Q24H [facility] Last Admin: 10/10/17 13:01 Dose: 200 mls/hr Insulin Human Regular (Novolin R) 0 unit SC ACHS [facility] PRN Reason: Protocol Last Admin: 10/10/17 21:54 Dose: Not Given Isosorbide Mononitrate (Imdur Er) 30 mg PO DAILY [facility] Last Admin: 10/10/17 09:17 Dose: 30 mg Losartan Potassium (Cozaar) 100 mg PO DAILY [facility] Last Admin: 10/10/17 09:17 Dose: 100 mg Montelukast Sodium (Singulair) 10 mg PO HS [facility] Last Admin: 10/10/17 22:03 Dose: 10 mg Nifedipine (Procardia Xl) 90 mg PO DAILY [facility] Last Admin: 10/10/17 09:18 Dose: 90 mg Hvuiw-6-Izib Ethyl Esters (Lovaza) 1 gm PO BID [facility] Last Admin: 10/10/17 17:41 Dose: 1 gm Pantoprazole Sodium (Protonix Ec Tab) 40 mg PO DAILY [facility] Last Admin: 10/10/17 09:16 Dose: 40 mg Polyethylene Glycol (Miralax) 17 gm PO HS PRN PRN Reason: Constipation Last Admin: 10/10/17 22:03 Dose: 17 gm Sitagliptin Phosphate (Januvia) 50 mg PO DAILY [facility] Last Admin: 10/10/17 09:17 Dose: 50 mg Vitamin E (Vitamin E 400 Units Cap) 400 intlu PO DAILY [facility] Last Admin: 10/10/17 09:18 Dose: 400 intlu - Labs Labs: 10/10/17 08:19 10/10/17 08:19 PT 10.5 SECONDS (9.7-12.2) 10/08/17 10:20 INR 1.0 10/08/17 10:20 APTT 27 SECONDS (21-34) 10/08/17 10:20 Assessment and Plan (1) Acute urinary tract infection Assessment & Plan: URINE CULTURE POSITIVE FOR GRAM-NEGATIVE RODS. RENAL ULTRASOUND R/O STONES VERSUS HYDRONEPHROSIS -P 1 DOSE GENTAMICIN 140 MG STAT iv PIGGYBACK. 10/09/17. CONTINUE iv ROCEPHIN 2 G ONCE A DAY DAILY STARTING 10/10/17. fOLLOW-UP CULTURES TO ADJUST ANTIBIOTICS. Status: Acute (2) Chest pain Assessment & Plan: DENIES ANY FURTHER CHEST PAINS. cARDIAC WORKUP AND PROGRESS Status: Acute (3) Anxiety Status: Acute (4) CAD (coronary artery disease) Assessment & Plan: HX OF CABG Status: Chronic (5) Diabetes mellitus Status: Chronic (6) Hypertension Status: Chronic
[2017-10-11] MEDS: (Novolin R) Insulin Human Regular 100 units/ml vial SC SCH ×4 (07:24→21:40)
[2017-10-11] MEDS: Pantoprazole 40 mg EC Tab PO SCH (10:26)
[2017-10-11] MEDS: NIFEdipine 90 mg ER Tab PO SCH (10:27)
[2017-10-11] MEDS: Omega-3-Acid Ethyl Esters 1 GM Cap PO SCH ×2 (10:27→17:28)
[2017-10-11] MEDS: TRINTELLIX 20 MG PO SCH (10:27)
[2017-10-11] MEDS: BRIVIACT 50 MG PO ×2 (11:03→17:28)
[2017-10-11] MEDS: cefTRIAXone 2 GM in Sodium Chloride 0.9% 100 ML IVPB SCH (14:12)
--- NOTE | 2017-10-11 14:26 | CP.PCM.PN ---
Subjective - Date & Time of Evaluation Date of Evaluation: 10/11/17 Time of Evaluation: 14:26 - Subjective Subjective: CHIEF COMPLAINTS TODAY : patient has no further chest pain. currently patient's pain is in the right renal angle and the right side of the lower chest ROS. HEENT : N. Resp : No cough, wheezing ,pleuritic CP ,or hemoptysis Cardio : No anginal CP, PND, orthopnea, palpitation GI : No abd.pain, n/v ,diarrhea or GI bleeding . 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 Musculoskel : No joint swelling , Derm : No rash Psych : Normal affect. Ext : No swelling ,calf pain PE. Pt. is alert awake in no distress. V.S As noted in the chart Head ,ear nose,throat and eyes : Normal. Neck : Supple with normal carotids. Lungs: Clear air entry. Heart : S1 & S2 normal with S4. No murmur. Abd : Soft non tender with normal bowel sounds. Neuro : Moves all ext. with no localized deficit. Ext : No edema with intact pulses.Non tender calves Derm : No rashes or decubitus ulcer. LABS/RADIOLOGY: urine shows gram-negative rods ASSESSMENT/PLAN : ultrasound of the kidney noted IV antibiotics as per ID Objective - Vital Signs/Intake and Output Vital Signs (last 24 hours): Temp Pulse Resp BP Pulse Ox 97.4 F L 65 20 116/75 95 10/11/17 07:25 10/11/17 14:02 10/11/17 07:25 10/11/17 14:02 10/11/17 07:25 Intake and Output: 10/11/17 10/11/17 11:59 23:59 Intake Total 120 Balance 120 - Medications Medications: Current Medications Acetaminophen (Tylenol 325mg Tab) 650 mg PO Q6 PRN PRN Reason: Pain, moderate (4-7) Last Admin: 10/09/17 14:13 Dose: 650 mg Amlodipine Besylate (Norvasc) 10 mg PO DAILY [facility] Last Admin: 10/11/17 10:26 Dose: 10 mg Ascorbic Acid (Vitamin C 500 Mg Tab) 500 mg PO DAILY [facility] Last Admin: 10/11/17 10:27 Dose: 500 mg Aspirin (Ecotrin) 81 mg PO DAILY [facility] Last Admin: 10/11/17 10:26 Dose: 81 mg Carvedilol (Coreg) 12.5 mg PO BID [facility] Last Admin: 10/11/17 12:37 Dose: 12.5 mg Cyanocobalamin (Vitamin B12 1000 Mcg Tab) 1,000 mcg PO DAILY [facility] Last Admin: 10/11/17 10:27 Dose: 1,000 mcg Glimepiride (Amaryl) 4 mg PO BID [facility] Last Admin: 10/11/17 10:26 Dose: 4 mg Heparin Sodium (Porcine) (Heparin) 5,000 units SC Q8 [facility] Last Admin: 10/11/17 14:03 Dose: 5,000 units Home Med (Patient's Own Control Medication) 1 tab PO BID [facility] Last Admin: 10/11/17 11:03 Dose: Not Given Home Med (Patient's Own Medication) 1 tab PO DAILY [facility] Last Admin: 10/11/17 10:27 Dose: 1 tab Hydralazine HCl (Apresoline) 25 mg PO DAILY [facility] Last Admin: 10/11/17 14:02 Dose: Not Given Ceftriaxone Sodium 2 gm/ (Sodium Chloride) 100 mls @ 200 mls/hr IVPB Q24H [facility] Last Admin: 10/11/17 14:12 Dose: 200 mls/hr Insulin Human Regular (Novolin R) 0 unit SC ACHS [facility] PRN Reason: Protocol Last Admin: 10/11/17 12:21 Dose: Not Given Isosorbide Mononitrate (Imdur Er) 30 mg PO DAILY [facility] Last Admin: 10/11/17 14:02 Dose: Not Given Losartan Potassium (Cozaar) 100 mg PO DAILY [facility] Last Admin: 10/11/17 12:38 Dose: 100 mg Montelukast Sodium (Singulair) 10 mg PO HS [facility] Last Admin: 10/10/17 22:03 Dose: 10 mg Nifedipine (Procardia Xl) 90 mg PO DAILY [facility] Last Admin: 10/11/17 10:27 Dose: 90 mg Crhop-7-Gysp Ethyl Esters (Lovaza) 1 gm PO BID [facility] Last Admin: 10/11/17 10:27 Dose: 1 gm Pantoprazole Sodium (Protonix Ec Tab) 40 mg PO DAILY [facility] Last Admin: 10/11/17 10:26 Dose: 40 mg Polyethylene Glycol (Miralax) 17 gm PO HS PRN PRN Reason: Constipation Last Admin: 10/10/17 22:03 Dose: 17 gm Sitagliptin Phosphate (Januvia) 50 mg PO DAILY [facility] Last Admin: 10/11/17 10:26 Dose: 50 mg Vitamin E (Vitamin E 400 Units Cap) 400 intlu PO DAILY [facility] Last Admin: 10/11/17 10:27 Dose: 400 intlu - Labs Labs: 10/10/17 08:19 10/10/17 08:19 PT 10.5 SECONDS (9.7-12.2) 10/08/17 10:20 INR 1.0 10/08/17 10:20 APTT 27 SECONDS (21-34) 10/08/17 10:20
--- NOTE | 2017-10-11 14:55 | CP.PCM.PN ---
Subjective - Date & Time of Evaluation Date of Evaluation: 10/11/17 Time of Evaluation: 14:54 - Subjective Subjective: CHIEF COMPLAINTS TODAY : AFEBRILE c/o rt flank pain.denies chest pain. Also complains of dysuria . ROS. HEENT : N. Resp : No cough, wheezing ,pleuritic CP ,or hemoptysis Cardio : No anginal CP, PND, orthopnea, palpitation GI : No abd.pain, n/v ,diarrhea or GI bleeding . 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 Musculoskel : No joint swelling , Derm : No rash Psych : Normal affect. Ext : No swelling ,calf pain PE. Pt. is alert awake in no distress. V.S As noted in the chart Head ,ear nose,throat and eyes : Normal. Neck : Supple with normal carotids. Lungs: Clear air entry.MIDLINE SCAR OF CABG Heart : S1 & S2 normal with S4. No murmur. Abd : Soft +VE TENDERNESS RIGHT FLANK AND RIGHT CVA. Neuro : Moves all ext. with no localized deficit. Ext : No edema with intact pulses.Non tender calves Derm : No rashes or decubitus ulcer. LABS/RADIOLOGY:. URINE CULTURE +VE E. COLI -S ROCEPHIN/CIPRO Objective - Vital Signs/Intake and Output Vital Signs (last 24 hours): Temp Pulse Resp BP Pulse Ox 97.4 F L 65 20 116/75 95 10/11/17 07:25 10/11/17 14:02 10/11/17 07:25 10/11/17 14:02 10/11/17 07:25 Intake and Output: 10/11/17 10/11/17 06:59 18:59 Intake Total 600 500 Balance 600 500 - Medications Medications: Current Medications Acetaminophen (Tylenol 325mg Tab) 650 mg PO Q6 PRN PRN Reason: Pain, moderate (4-7) Last Admin: 10/09/17 14:13 Dose: 650 mg Amlodipine Besylate (Norvasc) 10 mg PO DAILY [facility] Last Admin: 10/11/17 10:26 Dose: 10 mg Ascorbic Acid (Vitamin C 500 Mg Tab) 500 mg PO DAILY [facility] Last Admin: 10/11/17 10:27 Dose: 500 mg Aspirin (Ecotrin) 81 mg PO DAILY [facility] Last Admin: 10/11/17 10:26 Dose: 81 mg Carvedilol (Coreg) 12.5 mg PO BID [facility] Last Admin: 10/11/17 12:37 Dose: 12.5 mg Cyanocobalamin (Vitamin B12 1000 Mcg Tab) 1,000 mcg PO DAILY [facility] Last Admin: 10/11/17 10:27 Dose: 1,000 mcg Glimepiride (Amaryl) 4 mg PO BID [facility] Last Admin: 10/11/17 10:26 Dose: 4 mg Heparin Sodium (Porcine) (Heparin) 5,000 units SC Q8 [facility] Last Admin: 10/11/17 14:03 Dose: 5,000 units Home Med (Patient's Own Control Medication) 1 tab PO BID [facility] Last Admin: 10/11/17 11:03 Dose: Not Given Home Med (Patient's Own Medication) 1 tab PO DAILY [facility] Last Admin: 10/11/17 10:27 Dose: 1 tab Hydralazine HCl (Apresoline) 25 mg PO DAILY [facility] Last Admin: 10/11/17 14:02 Dose: Not Given Ceftriaxone Sodium 2 gm/ (Sodium Chloride) 100 mls @ 200 mls/hr IVPB Q24H [facility] Last Admin: 10/11/17 14:12 Dose: 200 mls/hr Insulin Human Regular (Novolin R) 0 unit SC ACHS [facility] PRN Reason: Protocol Last Admin: 10/11/17 12:21 Dose: Not Given Isosorbide Mononitrate (Imdur Er) 30 mg PO DAILY [facility] Last Admin: 10/11/17 14:02 Dose: Not Given Losartan Potassium (Cozaar) 100 mg PO DAILY [facility] Last Admin: 10/11/17 12:38 Dose: 100 mg Montelukast Sodium (Singulair) 10 mg PO HS [facility] Last Admin: 10/10/17 22:03 Dose: 10 mg Nifedipine (Procardia Xl) 90 mg PO DAILY [facility] Last Admin: 10/11/17 10:27 Dose: 90 mg Qcmfl-2-Uyoh Ethyl Esters (Lovaza) 1 gm PO BID [facility] Last Admin: 10/11/17 10:27 Dose: 1 gm Pantoprazole Sodium (Protonix Ec Tab) 40 mg PO DAILY [facility] Last Admin: 10/11/17 10:26 Dose: 40 mg Polyethylene Glycol (Miralax) 17 gm PO HS PRN PRN Reason: Constipation Last Admin: 10/10/17 22:03 Dose: 17 gm Sitagliptin Phosphate (Januvia) 50 mg PO DAILY [facility] Last Admin: 10/11/17 10:26 Dose: 50 mg Vitamin E (Vitamin E 400 Units Cap) 400 intlu PO DAILY [facility] Last Admin: 10/11/17 10:27 Dose: 400 intlu - Labs Labs: 10/10/17 08:19 10/10/17 08:19 PT 10.5 SECONDS (9.7-12.2) 10/08/17 10:20 INR 1.0 10/08/17 10:20 APTT 27 SECONDS (21-34) 10/08/17 10:20 Assessment and Plan (1) Acute urinary tract infection Assessment & Plan: CONTINUE iv ROCEPHIN 2 G ONCE A DAY DAILY STARTING 10/10/17 US ABD/KIDNEY NOTED B/L RENAL CYST COMPLEX APPEARING CYST ON LUP MEASURING 1.7CNM. +VE FATTY LIVER PT HAS RT FLANK PAIN WITH UROSEPSIS -MOST PROBABLE PYLEONEPHRITIS. CONTINUE IV ABX.IV ROCEPHIN 2GM IV OD FOR NOW CONSIDER CT ABDOMEN WITH IV CONTRAST TO DELINEATE COMPLEX CYST/VS MASS LUP KIDNEY. Status: Acute (2) Chest pain Status: Acute (3) Anxiety Status: Acute (4) CAD (coronary artery disease) Status: Chronic (5) Diabetes mellitus Status: Chronic (6) Hypertension Status: Chronic
--- NOTE | 2017-10-11 17:20 | CT ---
Date of service: 10/11/2017 PROCEDURE: CT Abdomen and Pelvis with contrast HISTORY: SEVERE PAIN RT FLANK /CYST/MASS LT UPPER POLE KIDN COMPARISON: None. TECHNIQUE: Contrast dose: 100 mL Omnipaque 300 Radiation dose: Total exam DLP = 1125.37 mGy-cm. This CT exam was performed using one or more of the following dose reduction techniques: Automated exposure control, adjustment of the mA and/or kV according to patient size, and/or use of iterative reconstruction technique. FINDINGS: LOWER THORAX: Status post CABG. LIVER: Unremarkable. No gross lesion or ductal dilatation. GALLBLADDER AND BILE DUCTS: Unremarkable. PANCREAS: Unremarkable. No gross lesion or ductal dilatation. SPLEEN: Unremarkable. 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 This measures -84 Hounsfield units consistent with lipid content. KIDNEYS AND URETERS: Right renal cortical cyst mid aspect, 1.6 cm and cortical cyst lower pole, 1.9 cm. Cortical cyst mid left kidney, 2.1 cm and lower pole left kidney, 1.3 cm. No calculus. No hydronephrosis. VASCULATURE: Unremarkable. No aortic aneurysm. BOWEL: Unremarkable. No obstruction. No gross mural thickening. APPENDIX: Normal appendix. PERITONEUM: Unremarkable. No free fluid. No free air. LYMPH NODES: Unremarkable. No enlarged lymph nodes. BLADDER: Poorly distended. REPRODUCTIVE: Status post hysterectomy BONES: No acute fracture. OTHER FINDINGS: There is cutaneous thickening of the left anterior abdominal wall with some heterogeneous infiltration of the subcutaneous fat, possibly due to local subcutaneous medication administration. Please correlate. IMPRESSION: Bilateral renal cysts. These measure low in attenuation and are unlikely to reflect solid masses. This correlates with findings on recent ultrasound examination. No calculus or hydronephrosis. Incidental right adrenal myelo lipoma, 2.8 cm. Cutaneous thickening of the left anterior abdominal wall. See above.
[2017-10-12] MEDS: (Novolin R) Insulin Human Regular 100 units/ml vial SC SCH ×4 (08:06→22:57)
[2017-10-12] MEDS: Omega-3-Acid Ethyl Esters 1 GM Cap PO SCH ×2 (09:24→17:50)
[2017-10-12] MEDS: Pantoprazole 40 mg EC Tab PO SCH (09:24)
[2017-10-12] MEDS: TRINTELLIX 20 MG PO SCH (09:25)
[2017-10-12] MEDS: NIFEdipine 90 mg ER Tab PO SCH (09:26)
[2017-10-12] MEDS: BRIVIACT 50 MG PO ×2 (09:33→17:50)
--- NOTE | 2017-10-12 12:12 | CP.PCM.PN ---
Subjective - Date & Time of Evaluation Date of Evaluation: 10/12/17 Time of Evaluation: 12:12 - Subjective Subjective: CHIEF COMPLAINTS TODAY : patient has no further chest pain. currently patient's pain is in the right renal angle and the right side of the lower chest ROS. HEENT : N. Resp : No cough, wheezing ,pleuritic CP ,or hemoptysis Cardio : No anginal CP, PND, orthopnea, palpitation GI : No abd.pain, n/v ,diarrhea or GI bleeding . 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 Musculoskel : No joint swelling , Derm : No rash Psych : Normal affect. Ext : No swelling ,calf pain PE. Pt. is alert awake in no distress. V.S As noted in the chart Head ,ear nose,throat and eyes : Normal. Neck : Supple with normal carotids. Lungs: Clear air entry. Heart : S1 & S2 normal with S4. No murmur. Abd : Soft non tender with normal bowel sounds. Neuro : Moves all ext. with no localized deficit. Ext : No edema with intact pulses.Non tender calves Derm : No rashes or decubitus ulcer. LABS/RADIOLOGY: urine shows gram-negative rods ASSESSMENT/PLAN : ultrasound of the kidney noted IV antibiotics as per ID Objective - Vital Signs/Intake and Output Vital Signs (last 24 hours): Temp Pulse Resp BP Pulse Ox 98.8 F 75 20 111/69 96 10/12/17 07:00 10/12/17 07:00 10/12/17 07:00 10/12/17 09:24 10/12/17 07:00 Intake and Output: 10/12/17 10/12/17 11:59 23:59 Intake Total 120 Balance 120 - Medications Medications: Current Medications Acetaminophen (Tylenol 325mg Tab) 650 mg PO Q6 PRN PRN Reason: Pain, moderate (4-7) Last Admin: 10/12/17 08:27 Dose: 650 mg Amlodipine Besylate (Norvasc) [address] [facility] Last Admin: 10/12/17 09:24 Dose: 10 mg Ascorbic Acid (Vitamin C 500 Mg Tab) [address] [facility] Last Admin: 10/12/17 09:24 Dose: 500 mg Aspirin (Ecotrin) [address] [facility] Last Admin: 10/12/17 09:24 Dose: 81 mg Carvedilol (Coreg) 12.[address] [facility] Last Admin: 10/12/17 09:24 Dose: 12.5 mg Cyanocobalamin (Vitamin B12 1000 Mcg Tab) 1,[address] [facility] Last Admin: 10/12/17 09:26 Dose: 1,000 mcg Docusate Sodium (Colace) [address] [facility] Last Admin: 10/12/17 09:24 Dose: 100 mg Glimepiride (Amaryl) [address] [facility] Last Admin: 10/12/17 09:24 Dose: 4 mg Home Med (Patient's Own Control Medication) [address] [facility] Last Admin: 10/12/17 09:33 Dose: 1 tab Home Med (Patient's Own Medication) [address] [facility] Last Admin: 10/12/17 09:25 Dose: 1 tab Hydralazine HCl (Apresoline) [address] [facility] Last Admin: 10/12/17 09:24 Dose: 25 mg Ceftriaxone Sodium 2 gm/ (Sodium Chloride) 100 mls @ 200 mls/hr IVPB Q24H [facility] Last Admin: 10/11/17 14:12 Dose: 200 mls/hr Insulin Human Regular (Novolin R) [address] [facility] PRN Reason: Protocol Last Admin: 10/12/17 12:03 Dose: Not Given Isosorbide Mononitrate (Imdur Er) [address] [facility] Last Admin: 10/12/17 09:24 Dose: 30 mg Losartan Potassium (Cozaar) [address] [facility] Last Admin: 10/12/17 09:24 Dose: 100 mg Montelukast Sodium (Singulair) [address] [facility] Last Admin: 10/11/17 21:42 Dose: 10 mg Nifedipine (Procardia Xl) [address] [facility] Last Admin: 10/12/17 09:26 Dose: 90 mg Ndkza-9-Amid Ethyl Esters (Lovaza) [address] [facility] Last Admin: 10/12/17 09:24 Dose: 1 gm Ondansetron HCl (Zofran Inj) 4 mg IVP Q6 PRN PRN Reason: Nausea/Vomiting Last Admin: 10/11/17 16:04 Dose: 4 mg Pantoprazole Sodium (Protonix Ec Tab) [address] [facility] Last Admin: 10/12/17 09:24 Dose: 40 mg Polyethylene Glycol (Miralax) 17 gm PO HS PRN PRN Reason: Constipation Last Admin: 10/10/17 22:03 Dose: 17 gm Sitagliptin Phosphate (Januvia) 50 mg PO DAILY [facility] Last Admin: 10/12/17 09:24 Dose: 50 mg Vitamin E (Vitamin E 400 Units Cap) 400 intlu PO DAILY [facility] Last Admin: 10/12/17 09:26 Dose: 400 intlu - Labs Labs: 10/10/17 08:19 10/10/17 08:19 PT 10.5 SECONDS (9.7-12.2) 10/08/17 10:20 INR 1.0 10/08/17 10:20 APTT 27 SECONDS (21-34) 10/08/17 10:20
[2017-10-12] MEDS: cefTRIAXone 2 GM in Sodium Chloride 0.9% 100 ML IVPB SCH (14:02)
[2017-10-13] MEDS: (Novolin R) Insulin Human Regular 100 units/ml vial SC SCH ×4 (07:34→21:58)
[2017-10-13] MEDS: TRINTELLIX 20 MG PO SCH (09:13)
[2017-10-13] MEDS: BRIVIACT 50 MG PO ×2 (09:14→17:46)
[2017-10-13] MEDS: Pantoprazole 40 mg EC Tab PO SCH (09:14)
[2017-10-13] MEDS: Omega-3-Acid Ethyl Esters 1 GM Cap PO SCH ×2 (09:15→17:33)
[2017-10-13] MEDS: NIFEdipine 90 mg ER Tab PO SCH (09:15)
[2017-10-13] MEDS: cefTRIAXone 2 GM in Sodium Chloride 0.9% 100 ML IVPB SCH (13:48)
--- NOTE | 2017-10-13 14:27 | CP.PCM.PN ---
Subjective - Date & Time of Evaluation Date of Evaluation: 10/13/17 Time of Evaluation: 14:27 - Subjective Subjective: CHIEF COMPLAINTS TODAY : patient has no further chest pain. currently patient's pain is in the right renal angle and the right side of the lower chest ROS. HEENT : N. Resp : No cough, wheezing ,pleuritic CP ,or hemoptysis Cardio : No anginal CP, PND, orthopnea, palpitation GI : No abd.pain, n/v ,diarrhea or GI bleeding . 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 Musculoskel : No joint swelling , Derm : No rash Psych : Normal affect. Ext : No swelling ,calf pain PE. Pt. is alert awake in no distress. V.S As noted in the chart Head ,ear nose,throat and eyes : Normal. Neck : Supple with normal carotids. Lungs: Clear air entry. Heart : S1 & S2 normal with S4. No murmur. Abd : Soft non tender with normal bowel sounds. Neuro : Moves all ext. with no localized deficit. Ext : No edema with intact pulses.Non tender calves Derm : No rashes or decubitus ulcer. LABS/RADIOLOGY: urine shows gram-negative rods ASSESSMENT/PLAN : ultrasound of the kidney noted IV antibiotics as per ID Objective - Vital Signs/Intake and Output Vital Signs (last 24 hours): Temp Pulse Resp BP Pulse Ox 98.2 F 87 20 124/76 95 10/13/17 07:24 10/13/17 07:24 10/13/17 07:24 10/13/17 09:15 10/13/17 07:24 - Medications Medications: Current Medications Acetaminophen (Tylenol 325mg Tab) 650 mg PO Q6 PRN PRN Reason: Pain, moderate (4-7) Last Admin: 10/12/17 08:27 Dose: 650 mg Amlodipine Besylate (Norvasc) 10 mg PO DAILY [facility] Last Admin: 10/13/17 09:14 Dose: 10 mg Ascorbic Acid (Vitamin C 500 Mg Tab) 500 mg PO DAILY [facility] Last Admin: 10/13/17 09:14 Dose: 500 mg Aspirin (Ecotrin) 81 mg PO DAILY [facility] Last Admin: 10/13/17 09:14 Dose: 81 mg Carvedilol (Coreg) 12.5 mg PO BID [facility] Last Admin: 10/13/17 09:15 Dose: 12.5 mg Cyanocobalamin (Vitamin B12 1000 Mcg Tab) 1,000 mcg PO DAILY [facility] Last Admin: 10/13/17 09:15 Dose: 1,000 mcg Docusate Sodium (Colace) 100 mg PO BID [facility] Last Admin: 10/13/17 09:15 Dose: 100 mg Glimepiride (Amaryl) 4 mg PO BID [facility] Last Admin: 10/13/17 09:14 Dose: 4 mg Home Med (Patient's Own Control Medication) 1 tab PO BID [facility] Last Admin: 10/13/17 09:14 Dose: 1 tab Home Med (Patient's Own Medication) 1 tab PO DAILY [facility] Last Admin: 10/13/17 09:13 Dose: 1 tab Hydralazine HCl (Apresoline) 25 mg PO DAILY [facility] Last Admin: 10/13/17 09:15 Dose: 25 mg Ceftriaxone Sodium 2 gm/ (Sodium Chloride) 100 mls @ 200 mls/hr IVPB Q24H [facility] Last Admin: 10/13/17 13:48 Dose: 200 mls/hr Insulin Human Regular (Novolin R) 0 unit SC [facility] PRN Reason: Protocol Last Admin: 10/13/17 12:16 Dose: Not Given Isosorbide Mononitrate (Imdur Er) 30 mg PO DAILY [facility] Last Admin: 10/13/17 09:14 Dose: 30 mg Losartan Potassium (Cozaar) 100 mg PO DAILY [facility] Last Admin: 10/13/17 09:15 Dose: 100 mg Montelukast Sodium (Singulair) 10 mg PO HS [facility] Last Admin: 10/12/17 21:32 Dose: 10 mg Nifedipine (Procardia Xl) 90 mg PO DAILY [facility] Last Admin: 10/13/17 09:15 Dose: 90 mg Aopwk-0-Fsau Ethyl Esters (Lovaza) 1 gm PO BID [facility] Last Admin: 10/13/17 09:15 Dose: 1 gm Ondansetron HCl (Zofran Inj) 4 mg IVP Q6 PRN PRN Reason: Nausea/Vomiting Last Admin: 10/11/17 16:04 Dose: 4 mg Pantoprazole Sodium (Protonix Ec Tab) 40 mg PO DAILY [facility] Last Admin: 10/13/17 09:14 Dose: 40 mg Polyethylene Glycol (Miralax) 17 gm PO HS PRN PRN Reason: Constipation Last Admin: 10/10/17 22:03 Dose: 17 gm Sitagliptin Phosphate (Januvia) 50 mg PO DAILY [facility] Last Admin: 10/13/17 09:14 Dose: 50 mg Vitamin E (Vitamin E 400 Units Cap) 400 intlu PO DAILY [facility] Last Admin: 10/13/17 09:15 Dose: 400 intlu - Labs Labs: 10/10/17 08:19 10/10/17 08:19 PT 10.5 SECONDS (9.7-12.2) 10/08/17 10:20 INR 1.0 10/08/17 10:20 APTT 27 SECONDS (21-34) 10/08/17 10:20
[2017-10-14 07:53] LABS: BASO # 0.1 K/uL (0.0-0.2); BASO % 0.8 % (0.0-2.0); EOS # 0.7 K/uL (0.0-0.7); EOS % 10.4 % (0.0-4.0); HEMOGLOBIN 14.5 g/dL (11.0-16.0); LYMPH % 15.5 % (20.0-40.0); MEAN CELL VOLUME 88.7 fL (81.0-99.0); MEAN CORPUSCULAR HEMOGLOBIN 29.9 pg (27.0-31.0); MEAN CORPUSCULAR HGB CONC 33.7 g/dL (33.0-37.0); MEAN PLATELET VOLUME 7.9 fL (7.2-11.7); MONO # 0.9 K/uL (0.0-0.8); MONO % 13.6 % (0.0-10.0); NEUT % 59.7 % (50.0-75.0); RBC 4.84 Mil/uL (3.80-5.20); RED CELL DISTRIBUTION WIDTH 14.1 % (11.5-14.5); WHITE BLOOD COUNT 6.7 K/uL (4.8-10.8)
[2017-10-14] MEDS: (Novolin R) Insulin Human Regular 100 units/ml vial SC SCH ×4 (07:54→21:55)
[2017-10-14 08:24] LABS: ALB/GLOB RATIO 1.4 (1.0-2.1); ALBUMIN 4.3 g/dL (3.5-5.0); ALT/SGPT 47 U/L (9-52); AST/SGOT 41 U/L (14-36); BLOOD UREA NITROGEN 18 mg/dL (7-17); CALCIUM 9.9 mg/dl (8.6-10.4); GFR NON-AFRICAN AMERICAN > 60
[2017-10-14] MEDS: BRIVIACT 50 MG PO ×2 (09:12→17:44)
[2017-10-14] MEDS: Omega-3-Acid Ethyl Esters 1 GM Cap PO SCH ×2 (09:13→17:44)
[2017-10-14] MEDS: TRINTELLIX 20 MG PO SCH (09:14)
[2017-10-14] MEDS: Pantoprazole 40 mg EC Tab PO SCH (09:14)
[2017-10-14] MEDS: NIFEdipine 90 mg ER Tab PO SCH (09:14)
[2017-10-14] MEDS: cefTRIAXone 2 GM in Sodium Chloride 0.9% 100 ML IVPB SCH (13:28)
--- NOTE | 2017-10-14 15:16 | CP.PCM.PN ---
Subjective - Date & Time of Evaluation Date of Evaluation: 10/14/17 Time of Evaluation: 15:15 - Subjective Subjective: CHIEF COMPLAINTS TODAY : no complaints ROS. HEENT : N. Resp : No cough, wheezing ,pleuritic CP ,or hemoptysis Cardio : No anginal CP, PND, orthopnea, palpitation GI : No abd.pain, n/v ,diarrhea or GI bleeding . 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 Musculoskel : No joint swelling , Derm : No rash Psych : Normal affect. Ext : No swelling ,calf pain PE. Pt. is alert awake in no distress. V.S As noted in the chart Head ,ear nose,throat and eyes : Normal. Neck : Supple with normal carotids. Lungs: Clear air entry. Heart : S1 & S2 normal with S4. No murmur. Abd : Soft non tender with normal bowel sounds. Neuro : Moves all ext. with no localized deficit. Ext : No edema with intact pulses.Non tender calves Derm : No rashes or decubitus ulcer. LABS/RADIOLOGY: urine shows gram-negative rods ASSESSMENT/PLAN : if stable patient will be discharged in a.m. Objective - Vital Signs/Intake and Output Vital Signs (last 24 hours): Temp Pulse Resp BP Pulse Ox 98.4 F 75 20 120/65 95 10/13/17 23:10 10/13/17 23:10 10/13/17 23:10 10/14/17 09:13 10/13/17 23:10 - Medications Medications: Current Medications Acetaminophen (Tylenol 325mg Tab) 650 mg PO Q6 PRN PRN Reason: Pain, moderate (4-7) Last Admin: 10/12/17 08:27 Dose: 650 mg Amlodipine Besylate (Norvasc) 10 mg PO DAILY [facility] Last Admin: 10/14/17 09:13 Dose: 10 mg Ascorbic Acid (Vitamin C 500 Mg Tab) 500 mg PO DAILY [facility] Last Admin: 10/14/17 09:14 Dose: 500 mg Aspirin (Ecotrin) 81 mg PO DAILY [facility] Last Admin: 10/14/17 09:13 Dose: 81 mg Carvedilol (Coreg) 12.5 mg PO BID [facility] Last Admin: 10/14/17 09:13 Dose: 12.5 mg Cyanocobalamin (Vitamin B12 1000 Mcg Tab) 1,000 mcg PO DAILY [facility] Last Admin: 10/14/17 09:14 Dose: 1,000 mcg Docusate Sodium (Colace) 100 mg PO BID [facility] Last Admin: 10/14/17 09:14 Dose: 100 mg Glimepiride (Amaryl) 4 mg PO BID [facility] Last Admin: 10/14/17 09:13 Dose: 4 mg Home Med (Patient's Own Control Medication) 1 tab PO BID [facility] Last Admin: 10/14/17 09:12 Dose: 1 tab Home Med (Patient's Own Medication) 1 tab PO DAILY [facility] Last Admin: 10/14/17 09:14 Dose: 1 tab Hydralazine HCl (Apresoline) 25 mg PO DAILY [facility] Last Admin: 10/14/17 09:14 Dose: 25 mg Ceftriaxone Sodium 2 gm/ (Sodium Chloride) 100 mls @ 200 mls/hr IVPB Q24H [facility] Last Admin: 10/14/17 13:28 Dose: 200 mls/hr Insulin Human Regular (Novolin R) 0 unit SC ACHS [facility] PRN Reason: Protocol Last Admin: 10/14/17 12:14 Dose: Not Given Isosorbide Mononitrate (Imdur Er) 30 mg PO DAILY [facility] Last Admin: 10/14/17 09:14 Dose: 30 mg Losartan Potassium (Cozaar) 100 mg PO DAILY [facility] Last Admin: 10/14/17 09:14 Dose: 100 mg Montelukast Sodium (Singulair) 10 mg PO HS [facility] Last Admin: 10/13/17 21:35 Dose: 10 mg Nifedipine (Procardia Xl) 90 mg PO DAILY [facility] Last Admin: 10/14/17 09:14 Dose: 90 mg Cdsxq-1-Lyai Ethyl Esters (Lovaza) 1 gm PO BID [facility] Last Admin: 10/14/17 09:13 Dose: 1 gm Ondansetron HCl (Zofran Inj) 4 mg IVP Q6 PRN PRN Reason: Nausea/Vomiting Last Admin: 10/11/17 16:04 Dose: 4 mg Pantoprazole Sodium (Protonix Ec Tab) 40 mg PO DAILY [facility] Last Admin: 10/14/17 09:14 Dose: 40 mg Polyethylene Glycol (Miralax) 17 gm PO HS PRN PRN Reason: Constipation Last Admin: 10/10/17 22:03 Dose: 17 gm Sitagliptin Phosphate (Januvia) 50 mg PO DAILY [facility] Last Admin: 10/14/17 09:14 Dose: 50 mg Vitamin E (Vitamin E 400 Units Cap) 400 intlu PO DAILY [facility] Last Admin: 10/14/17 09:14 Dose: 400 intlu - Labs Labs: 10/14/17 07:44 10/14/17 07:44 PT 10.5 SECONDS (9.7-12.2) 10/08/17 10:20 INR 1.0 10/08/17 10:20 APTT 27 SECONDS (21-34) 10/08/17 10:20
[2017-10-14] MEDS: POLYETHYLENE GLYCOL 3350 17 GM/Dose PACKET PO PRN (17:48)
[2017-10-14] MEDS ORDERED: DiphenhydrAMINE 50 mg/ml Inj IM ONE (20:53)
[2017-10-15 01:40] VITALS: RESP 20
[2017-10-15] MEDS: (Novolin R) Insulin Human Regular 100 units/ml vial SC SCH ×3 (08:04→17:09)
[2017-10-15] MEDS: TRINTELLIX 20 MG PO SCH (10:14)
[2017-10-15] MEDS: Pantoprazole 40 mg EC Tab PO SCH (10:14)
[2017-10-15] MEDS: Omega-3-Acid Ethyl Esters 1 GM Cap PO SCH ×2 (10:14→17:56)
[2017-10-15] MEDS: NIFEdipine 90 mg ER Tab PO SCH (10:17)
[2017-10-15] MEDS: BRIVIACT 50 MG PO (11:21)
--- NOTE | 2017-10-15 13:28 | CP.PCM.DIS ---
Provider - Provider Date of Admission: 10/10/17 15:25 Attending physician: Sierra Dixon MD Time Spent in preparation of Discharge (in minutes): 35 Hospital Course - Lab Results Lab Results: Micro Results 10/13/17 19:56 Urine Urine Culture - Final Yeast Species 10/09/17 19:30 Blood-Venous Blood Culture - Final NO GROWTH AFTER 5 DAYS 10/09/17 19:30 Blood-Venous Gram Stain - Final TEST NOT PERFORMED 10/09/17 19:00 Blood-Venous Blood Culture - Final NO GROWTH AFTER 5 DAYS 10/09/17 19:00 Blood-Venous Gram Stain - Final TEST NOT PERFORMED 10/08/17 20:10 Urine,Clean Catch Urine Culture - Final Escherichia Coli Most Recent Lab Values WBC 6.7 K/uL (4.8-10.8) 10/14/17 07:44 RBC 4.84 Mil/uL (3.80-5.20) 10/14/17 07:44 Hgb 14.5 g/dL (11.0-16.0) 10/14/17 07:44 Hct 43.0 % (34.0-47.0) 10/14/17 07:44 MCV 88.7 fL (81.0-99.0) 10/14/17 07:44 MCH 29.9 pg (27.0-31.0) 10/14/17 07:44 MCHC 33.7 g/dL (33.0-37.0) 10/14/17 07:44 RDW 14.1 % (11.5-14.5) 10/14/17 07:44 Plt Count 206 K/uL (130-400) 10/14/17 07:44 MPV 7.9 fL (7.2-11.7) 10/14/17 07:44 Neut % (Auto) 59.7 % (50.0-75.0) 10/14/17 07:44 Lymph % (Auto) 15.5 % (20.0-40.0) L 10/14/17 07:44 [place] % (Auto) 13.6 % (0.0-10.0) H 10/14/17 07:44 Eos % (Auto) 10.4 % (0.0-4.0) H 10/14/17 07:44 Baso % (Auto) 0.8 % (0.0-2.0) 10/14/17 07:44 Neut # (Auto) 4.0 K/uL (1.8-7.0) 10/14/17 07:44 Lymph # (Auto) 1.0 K/uL (1.0-4.3) 10/14/17 07:44 [place] # (Auto) 0.9 K/uL (0.0-0.8) H 10/14/17 07:44 Eos # (Auto) 0.7 K/uL (0.0-0.7) 10/14/17 07:44 Baso # (Auto) 0.1 K/uL (0.0-0.2) 10/14/17 07:44 PT 10.5 SECONDS (9.7-12.2) 10/08/17 10:20 INR 1.0 10/08/17 10:20 APTT 27 SECONDS (21-34) 10/08/17 10:20 Sodium 140 mmol/L (132-148) 10/14/17 07:44 Potassium 4.8 mmol/L (3.6-5.2) 10/14/17 07:44 Chloride 102 mmol/L (98-107) 10/14/17 07:44 Carbon Dioxide 29 mmol/L (22-30) 10/14/17 07:44 Anion Gap 14 (10-20) 10/14/17 07:44 BUN 18 mg/dL (7-17) H 10/14/17 07:44 Creatinine 0.9 mg/dL (0.7-1.2) 10/14/17 07:44 Est GFR ( Amer) > 60 10/14/17 07:44 Est GFR (Non-Af Amer) > 60 10/14/17 07:44 POC Glucose (mg/dL) 164 mg/dL (65-110) H 10/14/17 20:55 Random Glucose 135 mg/dL (65-105) H 10/14/17 07:44 Calcium 9.9 mg/dl (8.6-10.4) 10/14/17 07:44 Total Bilirubin 0.5 mg/dL (0.2-1.3) 10/14/17 07:44 Direct Bilirubin 0.7 mg/dL (0.0-0.4) H 10/10/17 08:19 AST 41 U/L (14-36) H D 10/14/17 07:44 ALT 47 U/L (9-52) 10/14/17 07:44 Alkaline Phosphatase 80 U/L (38-126) 10/14/17 07:44 Total Creatine Kinase 51 U/L (30-135) 10/08/17 21:20 CK-MB (Mass) 0.73 ng/mL (0.0-3.38) 10/08/17 21:20 Troponin I < 0.0120 ng/mL (0.00-0.120) 10/08/17 21:20 NT-Pro-B Natriuret Pep 111 pg/mL (0-900) 10/08/17 11:12 Total Protein 7.4 g/dL (6.3-8.3) 10/14/17 07:44 Albumin 4.3 g/dL (3.5-5.0) 10/14/17 07:44 Globulin 3.1 gm/dL (2.2-3.9) 10/14/17 07:44 Albumin/Globulin Ratio 1.4 (1.0-2.1) 10/14/17 07:44 Urine Color Yellow (YELLOW) 10/08/17 20:10 Urine Clarity Hazy (Clear) 10/08/17 20:10 Urine pH 6.0 (5.0-8.0) 10/08/17 20:10 Ur Specific [place] 1.015 (1.003-1.030) 10/08/17 20:10 Urine Protein Negative mg/dL (NEGATIVE) 10/08/17 20:10 Urine Glucose (UA) Normal mg/dL (Normal) 10/08/17 20:10 Urine Ketones Negative mg/dL (NEGATIVE) 10/08/17 20:10 Urine Blood Negative (NEGATIVE) 10/08/17 20:10 Urine Nitrate Positive (NEGATIVE) H 10/08/17 20:10 Urine Bilirubin Negative (NEGATIVE) 10/08/17 20:10 Urine Urobilinogen Normal mg/dL (0.2-1.0) 10/08/17 20:10 Ur Leukocyte Esterase 2+ Margo/uL (Negative) H 10/08/17 20:10 Urine WBC (Auto) 60 /hpf (0-5) H 10/08/17 20:10 Urine RBC (Auto) 1 /hpf (0-3) 10/08/17 20:10 Ur Squamous Epith Cells 2 /hpf (0-5) 10/08/17 20:10 Urine Bacteria Rare (<OCC) 10/08/17 20:10 - Hospital Course Hospital Course: For the last 2 days patient been complaining of retrosternal chest pain with increasing severity and frequency. Presented to [facility]. First set of cardiac enzyme is negative. EKG showed some T wave changes in the anterolateral leads. Patient is now admitted for further evaluation PAST HIST. History of coronary artery disease history of stent, CABG 5 years ago. 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 the following day it will become clear that the chest pain was mostly in the left posterior renal angle tenderness. Cardiac workup was negative. Urine showed E. coli and patient was treated with IV antibiotics for pyelonephritis. Prior to discharge patient had a urine showing yeast. Patient was discharged on Cipro 500 twice a day for 7 days and Diflucan. Patient will be followed up in the office in 1 week. Discharge Exam - Head Exam Head Exam: NORMAL INSPECTION Discharge Plan - Follow Up Plan Condition: FAIR Disposition: HOME/ ROUTINE
[2017-10-15] MEDS: cefTRIAXone 2 GM in Sodium Chloride 0.9% 100 ML IVPB SCH (14:03)
--- NOTE | 2017-10-15 14:09 | CP.PCM.PN ---
Subjective - Date & Time of Evaluation Date of Evaluation: 10/15/17 Time of Evaluation: 14:07 - Subjective Subjective: PT CLEARED - SEGUIMIENTO CON EL DR. PALACIOS EN LA OFICINA EN EL PLAZO DE 5-7 LEON --- LLAME A LA OFICINA PARA HACER NGUYEN NOLEBRTO. -STAY HIDRATADO, BEBIDA ABUNDANTE DE FLUIDOS. -CONTINUE LOS MEDICAMENTOS DE NGUYEN CASA ISABELLE HABITUALMENTE. -GARDUNO PRESENTADO 2 MEDICAMENTOS PARA LA INFECCIN EN NGUYEN ORINA. ASEGRESE DE JEREMI CADA MEDICACIN EXACTAMENTE ISABELLE SE PRESCRIBE: 1) CIPRO 500 MG --- TOME 1 TABLETA POR LA BOCA DOS VECES AL DA BRENNAN 7 LEON (COMIENCE A JEREMI ESTA NOCHE, 10/15/17, Y TERMINE COMPLETAMENTE). 2) DIFLUCAN 100 MG - TOME 1 TABLET TAVO VEZ AL DA BRENNAN 7 LEON (COMIENCE A JEREMI MAAIRAM MAANA, 16/10/17, Y TERMINE COMPLETAMENTE). -Para MS JUDD, CONTACTO DR. PALACIOS. -FOLLOW UP WITH DR. PALACIOS IN THE OFFICE WITHIN 5-7 DAYS---CALL THE OFFICE TO MAKE YOUR APPOINTMENT. -STAY HYDRATED, DRINK PLENTY OF FLUIDS. -CONTINUE YOUR HOME MEDICATIONS USUAL. -YOU HAVE BEEN PRESCRIBED 2 MEDICATIONS FOR THE INFECTION IN YOUR URINE. MAKE SURE YOU TAKE EACH MEDICATION EXACTLY PRESCRIBED: 1) CIPRO 500 MG---TAKE 1 TABLET BY MOUTH TWICE A DAY FOR 7 DAYS (START TAKING TONIGHT, 10/15/17, AND FINISH COMPLETELY). 2) DIFLUCAN 100 MG--TAKE 1 TABLET ONCE A DAY FOR 7 DAYS (START TAKING TOMORROW MORNING, 10/16/17, AND FINISH COMPLETELY). -FOR FURTHER ORDERS, CONTACT DR. PALACIOS. Objective - Vital Signs/Intake and Output Vital Signs (last 24 hours): Temp Pulse Resp BP Pulse Ox 98.7 F 79 20 119/72 18 L 10/15/17 07:25 10/15/17 07:25 10/15/17 07:25 10/15/17 10:14 10/15/17 07:25 Intake and Output: 10/15/17 10/15/17 06:59 18:59 Intake Total 500 Balance 500 - Medications Medications: Current Medications Acetaminophen (Tylenol 325mg Tab) 650 mg PO Q6 PRN PRN Reason: Pain, moderate (4-7) Last Admin: 10/15/17 08:47 Dose: 650 mg Amlodipine Besylate (Norvasc) 10 mg PO DAILY [facility] Last Admin: 10/15/17 10:14 Dose: 10 mg Ascorbic Acid (Vitamin C 500 Mg Tab) 500 mg PO DAILY [facility] Last Admin: 10/15/17 10:13 Dose: 500 mg Aspirin (Ecotrin) 81 mg PO DAILY [facility] Last Admin: 10/15/17 10:13 Dose: 81 mg Carvedilol (Coreg) 12.5 mg PO BID [facility] Last Admin: 10/15/17 10:14 Dose: 12.5 mg Cyanocobalamin (Vitamin B12 1000 Mcg Tab) 1,000 mcg PO DAILY [facility] Last Admin: 10/15/17 10:13 Dose: 1,000 mcg Docusate Sodium (Colace) 100 mg PO BID [facility] Last Admin: 10/15/17 10:13 Dose: 100 mg Glimepiride (Amaryl) 4 mg PO BID [facility] Last Admin: 10/15/17 10:13 Dose: 4 mg Home Med (Patient's Own Control Medication) 1 tab PO BID [facility] Last Admin: 10/15/17 11:21 Dose: 1 tab Home Med (Patient's Own Medication) 1 tab PO DAILY [facility] Last Admin: 10/15/17 10:14 Dose: 1 tab Hydralazine HCl (Apresoline) 25 mg PO DAILY [facility] Last Admin: 10/15/17 10:14 Dose: 25 mg Insulin Human Regular (Novolin R) 0 unit SC [facility] PRN Reason: Protocol Last Admin: 10/15/17 12:25 Dose: Not Given Isosorbide Mononitrate (Imdur Er) 30 mg PO DAILY [facility] Last Admin: 10/15/17 10:13 Dose: 30 mg Losartan Potassium (Cozaar) 100 mg PO DAILY [facility] Last Admin: 10/15/17 10:18 Dose: Not Given Montelukast Sodium (Singulair) 10 mg PO HS [facility] Last Admin: 10/14/17 21:06 Dose: 10 mg Nifedipine (Procardia Xl) 90 mg PO DAILY [facility] Last Admin: 10/15/17 10:17 Dose: Not Given [id number] Ethyl Esters (Lovaza) 1 gm PO BID [facility] Last Admin: 10/15/17 10:14 Dose: 1 gm Ondansetron HCl (Zofran Inj) 4 mg IVP Q6 PRN PRN Reason: Nausea/Vomiting Last Admin: 10/11/17 16:04 Dose: 4 mg Pantoprazole Sodium (Protonix Ec Tab) 40 mg PO DAILY [facility] Last Admin: 10/15/17 10:14 Dose: 40 mg Polyethylene Glycol (Miralax) 17 gm PO HS PRN PRN Reason: Constipation Last Admin: 10/14/17 17:48 Dose: 17 gm Sitagliptin Phosphate (Januvia) 50 mg PO DAILY [facility] Last Admin: 10/15/17 10:13 Dose: 50 mg Vitamin E (Vitamin E 400 Units Cap) 400 intlu PO DAILY [facility] Last Admin: 10/15/17 10:13 Dose: 400 intlu - Labs Labs: 10/14/17 07:44 10/14/17 07:44 PT 10.5 SECONDS (9.7-12.2) 10/08/17 10:20 INR 1.0 10/08/17 10:20 APTT 27 SECONDS (21-34) 10/08/17 10:20
[2017-10-15 17:05] VITALS: BP 107/67; PULSE 70; TEMP 97.8; O2SAT 97
== END 2017-10-15 18:55 | disposition home or self-care (01) | DRG 313 ==
LOC: C.ER 09:44 → C.9E 12:52 → C.6T 17:00 → OBSVTOIN 10-10 15:25
PROVIDERS: ADMIT Internal Medicine Cardiovascular Disease; ATTEND Internal Medicine Cardiovascular Disease
DX: R07.89 Other chest pain (principal); N39.0 Urinary tract infection, site not specified; I25.10 Atherosclerotic heart disease of native coronary artery without angina pectoris; J44.9 Chronic obstructive pulmonary disease, unspecified; F41.9 Anxiety disorder, unspecified; E11.9 Type 2 diabetes mellitus without complications; I10 Essential (primary) hypertension; G40.909 Epilepsy, unspecified, not intractable, without status epilepticus; Z86.73 Personal history of transient ischemic attack (TIA), and cerebral infarction without residual deficits; Z87.891 Personal history of nicotine dependence; Z95.1 Presence of aortocoronary bypass graft; M17.12 Unilateral primary osteoarthritis, left knee; B96.20 Unspecified Escherichia coli [E. coli] as the cause of diseases classified elsewhere